=== PATIENT | female | born 1930 ===

== ENCOUNTER 2016-09-15 23:58 | Inpatient (IN) | payer MEDICAID ==
[2016-09-16] MEDS ORDERED: Sodium Chloride 0.9% 500 ML IV STA ×2 (01:04→03:55)
[2016-09-16 01:44] LABS: BASO % 0.4 % (0.0-2.0); EOS % 0.1 % (0.0-4.0); HEMATOCRIT 40.1 % (34.0-47.0); LYMPH # 0.8 K/uL (1.0-4.3); LYMPH % 7.3 % (20.0-40.0); MEAN CELL VOLUME 92.1 fl (81.0-99.0); MEAN CORPUSCULAR HEMOGLOBIN 31.5 pg (27.0-31.0); MEAN CORPUSCULAR HGB CONC 34.2 g/dL (33.0-37.0); MEAN PLATELET VOLUME 8.5 fl (7.2-11.7); MONO # 0.6 K/uL (0.0-0.8); MONO % 5.7 % (0.0-10.0); NEUT # 9.3 K/uL (1.8-7.0); NEUT % 86.5 % (50.0-75.0); PLATELET COUNT 180 K/uL (130-400); RED CELL DISTRIBUTION WIDTH 13.4 % (11.5-14.5); WHITE BLOOD COUNT 10.7 K/uL (4.8-10.8)
--- NOTE | 2016-09-16 01:58 | ED PDOC ---
HPI: General Adult Time Seen by Provider: 09/16/16 00:03 Chief Complaint (Nursing): Weakness/Neurological Deficit History Per: Family Onset/Duration Of Symptoms: Days Current Symptoms Are (Timing): Still Present Severity: Moderate Additional Complaint(s): 86 y/o female with history of HTN, CAD s/p CABG years ago, and DM brought in by family who complains that the patient has been generally weaker, more tired, had decreased appetite but will eat when prompted since yesterday. She also had a mild cough. At baseline she is normally able to walk, however she has been in bed for the last day. Family denies fever at home, vomiting, shortness of breath. Patient denies nausea or sore throat. PMD: Dr. Melgar. Past Medical History Vital Signs: Last Vital Signs Temp 102.3 F H 09/16/16 01:45 Pulse 90 09/16/16 03:55 Resp 16 09/16/16 00:01 BP 156/80 H 09/16/16 00:01 Pulse Ox 100 09/16/16 03:55 - Medical History PMH: Arthritis, Atrial Fibrillation, CAD, HTN, Hypercholesterolemia, Hyperlipidemia - Surgical History Surgical History: CABG, Pacemaker - Family History Family History: States: Unknown Family Hx - Living Arrangements Living Arrangements: With Family - Home Medications Home Medications: Ambulatory Orders Medication Instructions Recorded Atorvastatin [Lipitor] 10 mg PO HS 01/11/15 Losartan/Hydrochlorothiazide 1 tab PO DAILY 01/11/15 [Hyzaar 100-25 Tablet] Nitroglycerin 0.2 mg/hr [Nitro-Dur 1 patch TD HS 01/11/15 0.2 mg/hr Patch] Nitroglycerin [Nitrostat] 0.4 mg SL Q5MIN PRN 01/11/15 Cholecalciferol [Vitamin D 1000 IU] 1 tab PO DAILY 01/01/16 Famotidine [Pepcid] 20 mg PO DAILY 01/01/16 Glucosa Gonzalez 2Kcl/Chondroitin Gonzalez 1 cap PO HS 01/01/16 [Glucosamine & Chondroitin Cap] Metoprolol Tartrate [Lopressor] 75 mg PO Q12H 01/01/16 Warfarin [Coumadin] 1 mg PO DAILY #0 tab 01/03/16 - Allergies Allergies/Adverse Reactions: Allergies Allergy/AdvReac Type Severity Reaction Status Date / Time No Known Allergies Allergy Verified 09/16/16 00:01 Review of Systems ROS Statement: Except As Marked, All Systems Reviewed And Found Negative Constitutional: Positive for: Weakness. Negative for: Fever Respiratory: Positive for: Cough Neurological: Positive for: Weakness Physical Exam - Reviewed Nursing Documentation Reviewed: Yes Vital Signs Reviewed: Yes - Physical Exam Appears: Positive for: Non-toxic, No Acute Distress Head Exam: Positive for: ATRAUMATIC, NORMAL INSPECTION, NORMOCEPHALIC Skin: Positive for: Normal Color, Warm, DRY Eye Exam: Positive for: EOMI, Normal appearance, PERRL ENT: Positive for: Normal ENT Inspection Neck: Positive for: Normal, Painless ROM Cardiovascular/Chest: Positive for: Regular Rate, Rhythm. Negative for: Tachycardia Respiratory: Positive for: Normal Breath Sounds. Negative for: Wheezing, Respiratory Distress Gastrointestinal/Abdominal: Positive for: Normal Exam, Bowel Sounds, Soft. Negative for: Tenderness Back: Positive for: Normal Inspection Extremity: Positive for: Normal ROM, Other (erythema on right lower leg) Neurologic/Psych: Positive for: Alert, Oriented - Laboratory Results Result Diagrams: 09/16/16 01:41 09/16/16 01:41 - ECG ECG: Positive for: Interpreted By Me, Viewed By Me ECG Rhythm: Positive for: Atrial Fibrillation, Right Bundle Branch Block, Nonspecific Changes Rate: 90 O2 Sat by Pulse Oximetry: 100 (RA) Pulse Ox Interpretation: Normal - Radiology X-Ray: Interpreted by Me, Viewed By Me X-Ray Interpretation: No Acute Disease Medical Decision Making Medical Decision Making: Initial Impression: influenza v. PNA v. UTI with associated dehydration. Initial Plan: - EKG - CXR - Labs - UA - Flu Swab - IVF - Tylenol for fever 02:34: VBG showed pH 7.16, CO2 68, K greater than 20, Na 115, Chloride 87, glucose 165, lactate 2.6. Lab called with critical low Na. Scribe Attestation: Documented by Mikala Machado, acting as a scribe for Barry Sullivan MD. Scribe Attestation: All medical record entries made by the Scribe were at my direction and personally dictated by me. I have reviewed the chart and agree that the record accurately reflects my personal performance of the history, physical exam, medical decision making, and the department course for this patient. I have also personally directed, reviewed, and agree with the discharge instructions and disposition. Disposition - Clinical Impression Clinical Impression: Hyponatremia, Fever, Cellulitis - Patient ED Disposition Is Patient to be Admitted: Yes Discussed With Dr.: Arnel Melgar Doctor Will See Patient In The: Hospital Counseled Patient/Family Regarding: Studies Performed, Diagnosis - Disposition Disposition Time: 05:29 Condition: FAIR - Pt Status Changed To: Hospital Disposition Of: Inpatient - Admit Certification Admit to Inpatient:: After my assessment, the patient will require hospitalization for at least two midnights. This is because of the severity of symptoms shown, intensity of services needed, and/or the medical risk in this patient being treated as an outpatient. - POA Present On Arrival: Poor Glycemic Control
[2016-09-16 02:33] LABS: VENOUS BLOOD GAS BASE EXCESS -5.8 mmol/L (0.0-2.0); VENOUS BLOOD GAS MODE ROOM AIR; VENOUS BLOOD GAS PCO2 68 mmHg (40-60); VENOUS BLOOD PH 7.16 (7.32-7.43)
[2016-09-16 02:48] LABS: BILIRUBIN,TOTAL 1.1 mg/dl (0.2-1.3); TOTAL PROTEIN 8.2 G/DL (6.3-8.2)
[2016-09-16 02:49] LABS: CALCIUM 8.9 mg/dL (8.4-10.2)
[2016-09-16] MEDS ORDERED: Potassium Chloride 20 mEq/15 ml LIQ UD PO ONE ×2 (03:09→15:29)
[2016-09-16 03:51] LABS: NEUTROPHIL 82 % (42-75); REACTIVE LYMPHOCYTES 4 % (0-0); TOTAL CELLS COUNTED 100
[2016-09-16] MEDS ORDERED: Potassium Chloride 20 mEq ER Tab PO ONE (03:59)
[2016-09-16] MEDS ORDERED: Piperacillin/Tazobact 3.375 GM in Sodium Chloride 0.9% 100 ML IVPB STA (05:15)
[2016-09-16] MEDS ORDERED: Vancomycin 1 g Inj ONE (06:57)
[2016-09-16 07:20] LABS: VENOUS BLOOD GAS BASE EXCESS 1.8 mmol/L (0.0-2.0); VENOUS BLOOD GAS PCO2 50 mmHg (40-60); VENOUS BLOOD PH 7.36 (7.32-7.43)
[2016-09-16] MEDS ORDERED: Sodium Chloride 0.9% 1,000 ML IV STA (07:22)
--- NOTE | 2016-09-16 08:41 | CARD ---
APPROVED REPORT EKG Measurement Heart [id number] <Conclusion> Atrial fibrillation Right bundle branch block T wave abnormality, consider inferolateral ischemia Abnormal ECG
--- NOTE | 2016-09-16 09:22 | RAD ---
HISTORY: fever COMPARISON: Comparison is made to the previous study dated FINDINGS: LUNGS: [id number] pulmonary vascular congestion is noted. No definite evidence of focal infiltrate or consolidation in this study. PLEURA: No significant pleural effusion identified, no pneumothorax apparent. CARDIOVASCULAR: The cardiac silhouette is mildly enlarged. Left-sided AICD is seen in place. OSSEOUS STRUCTURES: Moderate to severe degenerative changes more prominent at the left shoulder. VISUALIZED UPPER ABDOMEN: Normal. OTHER FINDINGS: None. IMPRESSION: Suspicious for cardiomegaly and pulmonary vascular congestion. No definite evidence of pneumonia.
[2016-09-16 09:36] LABS: TROPONIN I 0.13 ng/mL (0.00-0.120)
[2016-09-16] MEDS ORDERED: Piperacillin/Tazobact 3.375 gm Inj IVPB ONE (09:41)
[2016-09-16 09:57] LABS: PARTIAL THROMBOPLASTIN TIME 40.6 SECONDS (23.3-32.5)
[2016-09-16 14:17] LABS: CALCIUM 8.2 mg/dL (8.4-10.2); POTASSIUM 2.8 MMOL/L (3.6-5.0)
[2016-09-16 14:30] LABS: TROPONIN I 0.185 ng/mL (0.00-0.120)
[2016-09-16] MEDS ORDERED: Pneumococcal 23-Valent Vaccine IM ONE (14:58)
--- NOTE | 2016-09-16 16:33 | CP.PCM.CON ---
History of Present Illness - History of Present Illness History of Present Illness: 86 y/o female with history of HTN, CAD s/p CABG years ago, and DM seen at bedside in telemetry for bilateral lower extremity celllulitis. Patient''s daughter states that her mother was brought in to the ED after feeling weak, fatigue, decreased appetite since yesterday. Patient's mother states she noticed the redness on her mother's legs as she was being taken in to the hospital. Patient states that she has mild pain in her legs. She denies n/f/v/c/ d/sob. pmhx: Arthritis, Atrial Fibrillation, CAD, HTN, Hypercholesterolemia, Hyperlipidemia pshx: CABG, pacemaker FH: unknown all: NKDA Past Patient History - Past Medical History & Family History Past Medical History?: Yes - Past Social History Smoking Status: Never Smoked - CARDIAC Hx Cardiac Disorders: Yes (Afib, HTN, high cholesterol) - ENDOCRINE/METABOLIC Other/Comment: BORDERLINE DIABETIC - MUSCULOSKELETAL/RHEUMATOLOGICAL Hx Arthritis: Yes - PSYCHIATRIC Hx Emotional Abuse: No Hx Physical Abuse: No Hx Substance Use: No - SURGICAL HISTORY Hx Coronary Artery Bypass Graft: Yes - ANESTHESIA Hx Anesthesia: Yes Hx Anesthesia Reactions: No Meds Allergies/Adverse Reactions: Allergies Allergy/AdvReac Type Severity Reaction Status Date / Time No Known Allergies Allergy Verified 09/16/16 00:01 - Medications Medications: Current Medications Aspirin (Aspirin Chewable) 81 mg PO DAILY [facility] Last Admin: 09/16/16 10:10 Dose: 81 mg Atorvastatin Calcium (Lipitor) 10 mg PO HS [facility] Cholecalciferol (Vitamin D) 1,000 iu PO DAILY [facility] Famotidine (Pepcid) 20 mg PO DAILY [facility] Furosemide (Lasix) 20 mg IVP DAILY [facility] Last Admin: 09/16/16 10:11 Dose: Not Given Piperacillin Sod/Tazobactam (Sod 3.375 gm/ Sodium Chloride) 100 mls @ 100 mls/ hr IVPB Q6 [facility] Vancomycin HCl 1 gm/ Sodium (Chloride) 250 mls @ 166.667 mls/hr IVPB Q12H [facility] Metoprolol Tartrate (Lopressor) 75 mg PO Q12H [facility] Nitroglycerin (Nitro-Dur 0.2 Mg/Hr Patch) 1 patch TD HS [facility] Potassium Chloride (K-Dur 20 Meq Er Tab) 20 meq PO BID [facility] Potassium Chloride (Potassium Chloride Oral Soln) 20 meq PO BID [facility] Warfarin Sodium (Coumadin) 1 mg PO QD5 [facility] PRN Reason: Protocol Stop: 09/16/16 17:01 Physical Exam - Constitutional Appears: Well, Non-toxic, No Acute Distress - Extremities Exam Additional comments: Vasc: left: DP palpable, PT nonpalpable. Right- nonpalpable pedal pulses, TG warm to warm, CFT < 3 sec to all digits, nonpitting edema, diffuse erythema neuro: grossly diminished derm: ascending cellulitis proximally to mid-thigh R side, left- cellulitis extending to tibial tuberosity, superficial healed ulceration noted to right heel, no open lesions, hyperkeratotic lesion noted to plantar medial 1st metatarsal head of left foot, diffuse erythema to foot and legs b/l, nails are thickened and dystrophic, hallucal nails are partially removed with darkish discoloration from fungal nail treatment, no purulence, no drainage, no malodor , no fluctuance, no underlying abscess formation ortho: diminished ankle, STJ, 1st ray ROM - Neurological Exam Neurological exam: Alert, Oriented x3 - Psychiatric Exam Psychiatric exam: Normal Affect, Normal Mood Results - Vital Signs Recent Vital Signs: Last Vital Signs Temp 98.6 F 09/16/16 12:20 Pulse 82 09/16/16 12:20 Resp 18 09/16/16 12:20 BP 151/69 H 09/16/16 12:20 Pulse Ox 97 09/16/16 12:20 - Labs Result Diagrams: 09/16/16 01:41 09/16/16 13:45 Labs: Laboratory Results - last 24 hr 09/16/16 09/16/16 08:32 13:45 PT 26.8 H INR 2.58 H APTT 40.6 H Sodium 134 Potassium 2.8 L Chloride 94 L Carbon Dioxide 26 Anion Gap 17 BUN 28 H Creatinine 1.1 Est GFR ( Amer) 57 Est GFR (Non-Af Amer) 47 Random Glucose 164 H Calcium 8.2 L Troponin I 0.1850 H* Assessment & Plan - Assessment and Plan (Free Text) Assessment: 86 y/o female seen at bedside with pmhx of Arthritis, Atrial Fibrillation, CAD, HTN, Hypercholesterolemia, Hyperlipidemia, for bilateral lower extremity cellulitis Plan: patient evaluated and chart reviewed discussed in detail with attending Dr Obrien labs and vitals reviewed; Tmax- 102.3, WBC 10.7 marked erythema with marking pen, will continue monitoring Rx multipodus boots for offloading heels while bedbound Rx arterial dopplers b/l to assess vascular flow continue IV abx -Vanco and Zosyn as per ID podiatry will continue to monitor while patient remains in house
[2016-09-16] MEDS: Piperacillin/Tazobact 3.375 GM in Sodium Chloride 0.9% 100 ML IVPB SCH ×2 (16:57→21:15)
[2016-09-16] MEDS: Potassium Chloride 20 mEq/15 ml LIQ UD PO SCH (17:00)
[2016-09-16] MEDS: Potassium Chloride 20 mEq ER Tab PO SCH (19:19)
[2016-09-16 21:45] LABS: TROPONIN I 0.134 ng/mL (0.00-0.120)
[2016-09-16] MEDS: Nitroglycerin 0.2 mg/hr Top Patch TD SCH (21:51)
[2016-09-17] MEDS: Piperacillin/Tazobact 3.375 GM in Sodium Chloride 0.9% 100 ML IVPB SCH ×4 (04:12→22:36)
--- NOTE | 2016-09-17 06:32 | CP.PCM.HP ---
History of Present Illness - History of Present Illness History of Present Illness: This is an 86 y/o female admitted for increasing fatiguability, shortness of breath and decreased appetite for the past few days. She has a hx of CAD HTN atrial fibrillation and DM 2 and has been stable till the last few days where she was noted to have decreased appetite and noted SOB. There was no cough or fever. At the Er she was noted to have elevated lactic and troponin. and proBNP. Present on Admission - Present on Admission Any Indicators Present on Admission: No History of DVT/PE: No History of Uncontrolled Diabetes: Yes Urinary Catheter: No Decubitus Ulcer Present: No Review of Systems - Constitutional Constitutional: Anorexia, Fatigue, Lethargy Past Patient History - Past Medical History & Family History Past Medical History?: Yes - Past Social History Smoking Status: Never Smoked - CARDIAC Hx Cardiac Disorders: Yes (Afib, HTN, high cholesterol) - PULMONARY Hx Respiratory Disorders: No - NEUROLOGICAL Hx Neurological Disorder: No - HEENT Hx HEENT Problems: No - RENAL Hx Chronic Kidney Disease: No - ENDOCRINE/METABOLIC Other/Comment: BORDERLINE DIABETIC - HEMATOLOGICAL/ONCOLOGICAL Hx Blood Disorders: No - INTEGUMENTARY Hx Dermatological Problems: No - MUSCULOSKELETAL/RHEUMATOLOGICAL Hx Arthritis: Yes - GASTROINTESTINAL Hx Gastrointestinal Disorders: Yes Hx Colostomy: Yes - GENITOURINARY/GYNECOLOGICAL Hx Genitourinary Disorders: Yes - PSYCHIATRIC Hx Emotional Abuse: No Hx Physical Abuse: No Hx Substance Use: No - SURGICAL HISTORY Hx Coronary Artery Bypass Graft: Yes - ANESTHESIA Hx Anesthesia: Yes Hx Anesthesia Reactions: No Meds Allergies/Adverse Reactions: Allergies Allergy/AdvReac Type Severity Reaction Status Date / Time No Known Allergies Allergy Verified 09/16/16 00:01 Physical Exam - Head Exam Head Exam: NORMAL INSPECTION - ENT Exam Additional comments: dry mucosae - Respiratory Exam Respiratory Exam: Decreased Breath Sounds - Cardiovascular Exam Cardiovascular Exam: Irregular Rhythm - GI/Abdominal Exam GI & Abdominal Exam: Normal Bowel Sounds - Extremities Exam Additional comments: warm erythematous area on the right leg - Neurological Exam Neurological exam: Alert - Psychiatric Exam Psychiatric exam: Normal Affect Results - Vital Signs Recent Vital Signs: Last Vital Signs Temp 98.1 F 09/17/16 05:00 Pulse 72 09/17/16 05:00 Resp 20 09/17/16 05:00 BP 110/51 L 09/17/16 05:00 Pulse Ox 99 09/17/16 05:00 - Labs Result Diagrams: 09/16/16 01:41 09/16/16 13:45 Labs: Laboratory Results - last 24 hr 09/16/16 09/16/16 09/16/16 08:32 13:45 16:49 PT 26.8 H INR 2.58 H APTT 40.6 H Sodium 134 Potassium 2.8 L Chloride 94 L Carbon Dioxide 26 Anion Gap 17 BUN 28 H Creatinine 1.1 Est GFR ( Amer) 57 Est GFR (Non-Af Amer) 47 POC Glucose (mg/dL) 125 H Random Glucose 164 H Lactic Acid Calcium 8.2 L Troponin I 0.1850 H* NT-Pro-B Natriuret Pep 09/16/16 09/16/16 09/16/16 17:00 20:15 21:41 PT INR APTT Sodium Potassium Chloride Carbon Dioxide Anion Gap BUN Creatinine Est GFR ( Amer) Est GFR (Non-Af Amer) POC Glucose (mg/dL) 164 H Random Glucose Lactic Acid 3.1 H Calcium Troponin I 0.1340 H* NT-Pro-B Natriuret Pep 9150 H 09/17/16 05:29 PT INR APTT Sodium Potassium Chloride Carbon Dioxide Anion Gap BUN Creatinine Est GFR ( Amer) Est GFR (Non-Af Amer) POC Glucose (mg/dL) 125 H Random Glucose Lactic Acid Calcium Troponin I NT-Pro-B Natriuret Pep Assessment & Plan (1) Cellulitis Status: Acute (2) Fever Status: Acute (3) Anemia Status: Acute (4) Atrial fibrillation Status: Acute (5) Coronary artery disease Status: Acute (6) Congestive heart failure Status: Acute (7) Cellulitis, leg Status: Acute (8) Cardiac enzymes elevated Status: Acute - Assessment and Plan (Free Text) Plan: start iv antibiotics Cardiology eval ECHO lasic cautious hydration check labs in am.
[2016-09-17 07:21] LABS: CALCIUM 7.9 mg/dL (8.4-10.2); POTASSIUM 2.7 MMOL/L (3.6-5.0)
--- NOTE | 2016-09-17 08:22 | CARD ---
APPROVED REPORT EXAM: Two-dimensional and M-mode echocardiogram with Doppler and color Doppler. Other Information Quality : GoodRhythm : NSR INDICATION Pumonary Congestion Surgery/Intervention CABD DIMENSIONS IVSd0.96 (0.7-1.1cm)LVDd4.60 (3.9-5.9cm) LVOT Diameter2.08 (1.8-2.4cm)PWd0.86 (0.7-1.1cm) IVSs1.30 (0.8-1.2cm)LVDs2.96 (2.5-4.0cm) FS (%) 35.6 %PWs1.26 (0.8-1.2cm) M-Mode DIMENSIONS Left Atrium (MM)4.26 (2.5-4.0cm)IVSd1.12 (0.7-1.1cm) Aortic Root2.53 (2.2-3.7cm)LVDd4.56 (4.0-5.6cm) Aortic Cusp Exc.1.47 (1.5-2.0cm)PWd0.88 (0.7-1.1cm) IVSs1.38 cmFS (%) 32 % LVDs3.09 (2.0-3.8cm)PWs1.65 cm Mitral Valve E/A ratio0.0 TDI E/Lateral E'0.0E/Medial E'0.0 Pulmonary Valve PV Peak Bektqinr02.8cm/s Tricuspid Valve TR Peak [id number]/sRAP [id number] Peak Gr.27mmHg [id number] LEFT VENTRICLE The left ventricle is normal size. There is normal left ventricular wall thickness. Left ventricle systolic function is - moderately impaired. The study is only of fair quality and the endocardium could not be seen on most views. There is - moderate LV hypokinesia. The patient is in atrial fibrillation. No left ventricle thrombus noted on this study. There is no ventricular septal defect visualized. There is no left ventricular aneurysm. There is no mass noted in the left ventricle. RIGHT VENTRICLE The right ventricle is normal size. There is normal right ventricular wall thickness. The right ventricular systolic function is normal. ATRIA The left atrium is - moderately dilated on the 2D study There is no thrombus suspected in the left atrium.. The right atrium is - mildly dilated. The interatrial septum is intact with no evidence for an atrial septal defect. AORTIC VALVE The aortic valve is mildly thickened. There is moderate aortic regurgitation. There is no aortic valvular stenosis. MITRAL VALVE Mitral annular calcification is mild. The mitral valve leaflets are thickened. There is no evidence of mitral valve prolapse. There is no mitral valve stenosis. Mitral regurgitation is - moderate. TRICUSPID VALVE The tricuspid valve is normal in structure and function. There is moderate tricuspid regurgitation. Right ventricular systolic pressure is estimated at 38 mmHg. There is no tricuspid valve prolapse or vegetation. There is no tricuspid valve stenosis. PULMONIC VALVE The pulmonary valve is normal in structure and function. There is trace pulmonic valvular regurgitation. GREAT VESSELS The aortic root is normal in size. The IVC is normal in size and collapses >50% with inspiration. PERICARDIAL EFFUSION small anterior echo free space There is no pleural effusion. <Conclusion> The study is only of fair quality. The left ventricle is normal size. There is normal left ventricular wall thickness. Left ventricle systolic function is - moderately impaired. The left atrium and right atrium are dilated. The mitral and aortic valves are thickened but not stenotic. There is moderate rgurgitation of the mitral, aortic and tricuspid valves.
--- NOTE | 2016-09-17 08:23 | CP.PCM.PN ---
Subjective - Date & Time of Evaluation Date of Evaluation: 09/17/16 Time of Evaluation: 07:20 - Subjective Subjective: 86F seen and examined at bedside, family member at bedside. Pt without acute complaints, denies SOB, chest pain, palpitations. She does report LT great toe with some tenderness. Objective - Vital Signs/Intake and Output Vital Signs (last 24 hours): Temp Pulse Resp BP Pulse Ox 36.5 C 71 20 108/58 L 100 09/17/16 08:00 09/17/16 08:00 09/17/16 08:00 09/17/16 08:00 09/17/16 08:00 - Medications Medications: Current Medications Aspirin (Aspirin Chewable) 81 mg PO DAILY [facility] Last Admin: 09/16/16 10:10 Dose: 81 mg Atorvastatin Calcium (Lipitor) 10 mg PO HS [facility] Last Admin: 09/16/16 21:51 Dose: 10 mg Cholecalciferol (Vitamin D) 1,000 iu PO DAILY [facility] Famotidine (Pepcid) 20 mg PO DAILY [facility] Furosemide (Lasix) 20 mg IVP DAILY [facility] Last Admin: 09/16/16 10:11 Dose: Not Given Piperacillin Sod/Tazobactam (Sod 3.375 gm/ Sodium Chloride) 100 mls @ 100 mls/ hr IVPB Q6 [facility] Last Admin: 09/17/16 04:12 Dose: 100 mls/hr Vancomycin HCl 1 gm/ Sodium (Chloride) 250 mls @ 166.667 mls/hr IVPB Q12H [facility] Last Admin: 09/17/16 02:22 Dose: 166.667 mls/hr Potassium Chloride (Potassium Cl 10meq/50ml Sterile Water) 50 mls @ 50 mls/hr IVPB Q1 [facility] Stop: 09/17/16 11:59 Metoprolol Tartrate (Lopressor) 75 mg PO Q12H [facility] Last Admin: 09/17/16 03:40 Dose: Not Given Nitroglycerin (Nitro-Dur 0.2 Mg/Hr Patch) 1 patch TD HS [facility] Last Admin: 09/16/16 21:51 Dose: 1 patch Potassium Chloride (K-Dur 20 Meq Er Tab) 20 meq PO BID [facility] Last Admin: 09/16/16 19:19 Dose: Not Given Potassium Chloride (Potassium Chloride Oral Soln) 20 meq PO BID [facility] Last Admin: 09/16/16 17:00 Dose: Not Given - Labs Labs: 09/17/16 05:25 PT 27.5 SECONDS (9.6-11.2) H 09/17/16 05:25 INR 2.64 (0.92-1.08) H 09/17/16 05:25 APTT 40.6 SECONDS (23.3-32.5) H 09/16/16 08:32 - Constitutional Appears: Well, Non-toxic, No Acute Distress - Head Exam Head Exam: ATRAUMATIC, NORMAL INSPECTION - Eye Exam Eye Exam: EOMI, Normal appearance - ENT Exam ENT Exam: Mucous Membranes Moist, Normal Exam - Neck Exam Neck Exam: Full ROM, Normal Inspection - Respiratory Exam Respiratory Exam: Decreased Breath Sounds (bibasilar), Clear to Ausculation Bilateral, NORMAL BREATHING PATTERN. absent: Wheezes - Cardiovascular Exam Cardiovascular Exam: Irregular Rhythm (PPM). absent: JVD - GI/Abdominal Exam GI & Abdominal Exam: Soft, Normal Bowel Sounds. absent: Tenderness - Extremities Exam Extremities Exam: Normal Capillary Refill. absent: Normal Inspection Additional comments: Bilateral lower extremity erythema and resolving edema R>>L, warm, non-pitting, palpable DPs bilaterally with sensation intact. - Neurological Exam Neurological Exam: Alert, Awake - Psychiatric Exam Psychiatric exam: Normal Affect, Normal Mood - Skin Skin Exam: Intact, Normal Color (EXCEPT as documented in extremity exam) Assessment and Plan (1) Cellulitis, leg Assessment & Plan: Bilateral R>>L appears to be 2/2 venous stasis with skin changes and palpable pulses, however given co-morbidities and cardiac history arterial disease likely. - Podiatry Consult: Arterial duplex, soft boots - Physical Therapy - c/w Vanc/Zosyn - Vanc trough - Physical Therapy - OOB to chair Status: Acute (2) Hypokalemia Assessment & Plan: Likely 2/2 Lasix, no acute EKG changes. Magnesium WNL - Repleting IV and PO - Repeat BMP @ 1600 - Will monitor Status: Acute (3) DVT prophylaxis Assessment & Plan: Pt currently anti-coagulated for a-fib and in therapeutic range. - c/w Coumadin 1mg, Daily Status: Acute (4) Atrial fibrillation Assessment & Plan: Chronic, rate-controlled, INR therapeutic, echo this admission c/w moderate impaired systolic dysfunction. - c/w home regimen - Coumadin 1mg, PO, Daily Status: Chronic (5) Hypertension Assessment & Plan: Well-controlled - c/w home regimen Status: Chronic
--- NOTE | 2016-09-17 08:56 | CP.PCM.CON ---
History of Present Illness - History of Present Illness History of Present Illness: Full Note Dictated. Cellulitis with elevated Lactate level Elevated Troponins (due to CKD + LV dysfunction) Stable CAD with S/P CABG No evidence of AMI/ACS Chr A Fib with S/P PPM Implant DM(II)/HTN On IVABx Stable from Cardiac point of view On [place] for A Fib Past Patient History - Past Medical History & Family History Past Medical History?: Yes - Past Social History Smoking Status: Never Smoked - CARDIAC Hx Cardiac Disorders: Yes (Afib, HTN, high cholesterol) - PULMONARY Hx Respiratory Disorders: No - NEUROLOGICAL Hx Neurological Disorder: No - HEENT Hx HEENT Problems: No - RENAL Hx Chronic Kidney Disease: No - ENDOCRINE/METABOLIC Other/Comment: BORDERLINE DIABETIC - HEMATOLOGICAL/ONCOLOGICAL Hx Blood Disorders: No - INTEGUMENTARY Hx Dermatological Problems: No - MUSCULOSKELETAL/RHEUMATOLOGICAL Hx Arthritis: Yes - GASTROINTESTINAL Hx Gastrointestinal Disorders: Yes Hx Colostomy: Yes - GENITOURINARY/GYNECOLOGICAL Hx Genitourinary Disorders: Yes - PSYCHIATRIC Hx Emotional Abuse: No Hx Physical Abuse: No Hx Substance Use: No - SURGICAL HISTORY Hx Coronary Artery Bypass Graft: Yes - ANESTHESIA Hx Anesthesia: Yes Hx Anesthesia Reactions: No Meds Allergies/Adverse Reactions: Allergies Allergy/AdvReac Type Severity Reaction Status Date / Time No Known Allergies Allergy Verified 09/16/16 00:01 - Medications Medications: Current Medications Aspirin (Aspirin Chewable) 81 mg PO DAILY [facility] Last Admin: 09/16/16 10:10 Dose: 81 mg Atorvastatin Calcium (Lipitor) 10 mg PO HS [facility] Last Admin: 09/16/16 21:51 Dose: 10 mg Cholecalciferol (Vitamin D) 1,000 iu PO DAILY [facility] Famotidine (Pepcid) 20 mg PO DAILY [facility] Furosemide (Lasix) 20 mg IVP DAILY [facility] Last Admin: 09/16/16 10:11 Dose: Not Given Piperacillin Sod/Tazobactam (Sod 3.375 gm/ Sodium Chloride) 100 mls @ 100 mls/ hr IVPB Q6 [facility] Last Admin: 09/17/16 04:12 Dose: 100 mls/hr Vancomycin HCl 1 gm/ Sodium (Chloride) 250 mls @ 166.667 mls/hr IVPB Q12H [facility] Last Admin: 09/17/16 02:22 Dose: 166.667 mls/hr Potassium Chloride (Potassium Cl 10meq/50ml Sterile Water) 50 mls @ 50 mls/hr IVPB Q1 [facility] Stop: 09/17/16 11:59 Metoprolol Tartrate (Lopressor) 75 mg PO Q12H [facility] Last Admin: 09/17/16 03:40 Dose: Not Given Nitroglycerin (Nitro-Dur 0.2 Mg/Hr Patch) 1 patch TD HS [facility] Last Admin: 09/16/16 21:51 Dose: 1 patch Potassium Chloride (K-Dur 20 Meq Er Tab) 20 meq PO BID [facility] Last Admin: 09/16/16 19:19 Dose: Not Given Potassium Chloride (Potassium Chloride Oral Soln) 20 meq PO BID [facility] Last Admin: 09/16/16 17:00 Dose: Not Given Results - Vital Signs Recent Vital Signs: Last Vital Signs Temp 97.7 F 09/17/16 08:00 Pulse 71 09/17/16 08:00 Resp 20 09/17/16 08:00 BP 108/58 L 09/17/16 08:00 Pulse Ox 100 09/17/16 08:00 - Labs Result Diagrams: 09/16/16 01:41 09/17/16 05:25 Labs: Laboratory Results - last 24 hr 09/16/16 09/16/16 09/16/16 08:32 13:45 16:49 PT 26.8 H INR 2.58 H APTT 40.6 H Sodium 134 Potassium 2.8 L Chloride 94 L Carbon Dioxide 26 Anion Gap 17 BUN 28 H Creatinine 1.1 Est GFR ( Amer) 57 Est GFR (Non-Af Amer) 47 POC Glucose (mg/dL) 125 H Random Glucose 164 H Lactic Acid Calcium 8.2 L Troponin I 0.1850 H* NT-Pro-B Natriuret Pep 09/16/16 09/16/16 09/16/16 17:00 20:15 21:41 PT INR APTT Sodium Potassium Chloride Carbon Dioxide Anion Gap BUN Creatinine Est GFR ( Amer) Est GFR (Non-Af Amer) POC Glucose (mg/dL) 164 H Random Glucose Lactic Acid 3.1 H Calcium Troponin I 0.1340 H* NT-Pro-B Natriuret Pep 9150 H 09/17/16 09/17/16 05:25 05:29 PT 27.5 H INR 2.64 H APTT Sodium 134 Potassium 2.7 L Chloride 96 L Carbon Dioxide 25 Anion Gap 16 BUN 29 H Creatinine 1.1 Est GFR ( Amer) 57 Est GFR (Non-Af Amer) 47 POC Glucose (mg/dL) 125 H Random Glucose 114 H Lactic Acid Calcium 7.9 L Troponin I NT-Pro-B Natriuret Pep
[2016-09-17 09:24] LABS: MAGNESIUM 1.9 MG/DL (1.6-2.3); PHOSPHOROUS 2.3 mg/dl (2.5-4.5)
--- NOTE | 2016-09-17 09:26 | CP.PCM.PN ---
Subjective - Date & Time of Evaluation Date of Evaluation: 09/17/16 Time of Evaluation: 09:19 - Subjective Subjective: 86 year old female with PMHx of HTN, CAD s/p CABG years ago, and DM seen at bedside in telemetry for bilateral lower extremity celllulitis. Patient denies any pain to her lower extremities. She states she feels better than yesterday and the redness has decreased. She denies n/f/v/c/d/sob. Objective - Vital Signs/Intake and Output Vital Signs (last 24 hours): Temp Pulse Resp BP Pulse Ox 97.7 F 71 20 108/58 L 100 09/17/16 08:00 09/17/16 08:00 09/17/16 08:00 09/17/16 08:00 09/17/16 08:00 - Medications Medications: Current Medications Aspirin (Aspirin Chewable) 81 mg PO DAILY [facility] Last Admin: 09/16/16 10:10 Dose: 81 mg Atorvastatin Calcium (Lipitor) 10 mg PO [facility] Last Admin: 09/16/16 21:51 Dose: 10 mg Cholecalciferol (Vitamin D) 1,000 iu PO DAILY [facility] Last Admin: 09/17/16 08:52 Dose: 1,000 iu Famotidine (Pepcid) 20 mg PO DAILY [facility] Last Admin: 09/17/16 08:49 Dose: 20 mg Furosemide (Lasix) 20 mg IVP DAILY [facility] Last Admin: 09/16/16 10:11 Dose: Not Given Piperacillin Sod/Tazobactam (Sod 3.375 gm/ Sodium Chloride) 100 mls @ 100 mls/ hr IVPB Q6 [facility] Last Admin: 09/17/16 09:05 Dose: 100 mls/hr Vancomycin HCl 1 gm/ Sodium (Chloride) 250 mls @ 166.667 mls/hr IVPB Q12H [facility] Last Admin: 09/17/16 02:22 Dose: 166.667 mls/hr Potassium Chloride (Potassium Cl 10meq/50ml Sterile Water) 50 mls @ 50 mls/hr IVPB Q1 [facility] Stop: 09/17/16 11:59 Metoprolol Tartrate (Lopressor) 75 mg PO Q12H [facility] Last Admin: 09/17/16 03:40 Dose: Not Given Nitroglycerin (Nitro-Dur 0.2 Mg/Hr Patch) 1 patch TD HS [facility] Last Admin: 09/16/16 21:51 Dose: 1 patch Potassium Chloride (K-Dur 20 Meq Er Tab) 20 meq PO BID [facility] Last Admin: 09/16/16 19:19 Dose: Not Given Potassium Chloride (Potassium Chloride Oral Soln) 20 meq PO BID [facility] Last Admin: 09/16/16 17:00 Dose: Not Given - Labs Labs: 09/17/16 05:25 PT 27.5 SECONDS (9.6-11.2) H 09/17/16 05:25 INR 2.64 (0.92-1.08) H 09/17/16 05:25 APTT 40.6 SECONDS (23.3-32.5) H 09/16/16 08:32 - Constitutional Appears: Well, Non-toxic, No Acute Distress - Extremities Exam Additional comments: Vasc: left: DP palpable, PT nonpalpable. Right- nonpalpable pedal pulses, TG warm to warm, CFT < 3 sec to all digits. No edema noted. diffuse erythema noted to lower extremies b/l Neuro: grossly diminished Derm: Erythema is resolving, on the right it from the tibial tuberosity to the digits on the left from the midcalf to the digits. superficial healed ulceration noted to right heel, no open lesions, hyperkeratotic lesion noted to plantar medial 1st metatarsal head of left foot, diffuse erythema to foot and legs b/l, nails are thickened and dystrophic, hallucal nails are partially removed with darkish discoloration from fungal nail treatment, no purulence, no drainage, no malodor, no fluctuance, no underlying abscess formation Ortho: diminished ankle, STJ, 1st ray ROM. No pain on palpation to lower extremities b/l. - Neurological Exam Neurological Exam: Alert, Awake, Oriented x3 - Psychiatric Exam Psychiatric exam: Normal Affect, Normal Mood Assessment and Plan - Assessment and Plan (Free Text) Assessment: 86 y/o female seen at bedside with pmhx of Arthritis, Atrial Fibrillation, CAD, HTN, Hypercholesterolemia, Hyperlipidemia, for bilateral lower extremity cellulitis Plan: Patient examined and evaluated Chart and vitals reviewed Discussed in detail with attending Dr Obrien labs and vitals reviewed; currently afebrile, WBC 10.7(09/16/16) Rx multipodus boots for offloading heels while bedbound Rx arterial dopplers b/l to assess vascular flow Continue IV abx -Vanco and Zosyn as per ID podiatry will continue to monitor while patient remains in house
[2016-09-17] MEDS: Potassium CL 10 MEQ/50 ML 50 ML IVPB SCH ×4 (09:49→15:34)
[2016-09-17] MEDS: Potassium Chloride 20 mEq ER Tab PO SCH ×2 (10:39→16:43)
[2016-09-17] MEDS: Potassium Chloride 20 mEq/15 ml LIQ UD PO SCH (10:39)
[2016-09-17] MEDS ORDERED: Simethicone 80 mg Chewtab PO PRN (11:09)
--- NOTE | 2016-09-17 11:21 | PQF GENQUE ---
Dr. Ambrose, Please specify the type of Acute heart failure in your progress notes: Combined systolic and diastolic Diastolic Systolic Other (please specify) Unable to determine Unknown --cxr; Imp:Suspicious for cardiomegaly and pulmonary vascular congestion. No definite evidence of pneumonia. --09/17 echo: The study is only of fair quality. The left ventricle is normal size. There is normal left ventricular wall thickness. Left ventricle systolic function is - moderately impaired. The left atrium and right atrium are dilated. The mitral and aortic valves are thickened but not stenotic. There is moderate rgurgitation of the mitral, aortic and tricuspid valves. --PRoBNP: 9150 --IV Lasix, cautious hydration This form is a permanent part of the medical record Clarification of your documentation is requested to better reflect the severity of illness and intensity of treatment of your patient. Indicators present [] Specify: [] [] Specify: [] [] Specify: [] [] Specify: [] Location in the medical record that reflects the above clinical findings: [] Treatment Provided: [] PHYSICIAN'S RESPONSE Based on your medical judgment of the clinical indicators outlined above please clarify the following: [] Practitioner response [] If unable to determine, please check the box, sign and date. Present On Admission (POA) Indicator: [] Present at the time of admission [] Not present at the time of admission [] Clinically Undetermined In responding to this query, please exercise your independent professional judgment. The fact that a question is asked does not imply that any particular answer is desired or expected. Thank you for your clarification on this documentation. If you have any questions please call. * Thank you, Cally Montalvo RN BSN ext. #[phone] MTDD
--- NOTE | 2016-09-17 11:23 | PQF GENQUE ---
Dr. Melgar, In agreement with: Pressure ulcer: POA:b/l heels:non blanchable redness:listed in the nurses Admission Assessment Information OR: Disagree OR: Other explanation of clinical findings Wound RN consult: pending This form is a permanent part of the medical record Clarification of your documentation is requested to better reflect the severity of illness and intensity of treatment of your patient. Indicators present [] Specify: [] [] Specify: [] [] Specify: [] [] Specify: [] Location in the medical record that reflects the above clinical findings: [] Treatment Provided: [] PHYSICIAN'S RESPONSE Based on your medical judgment of the clinical indicators outlined above please clarify the following: [] Practitioner response [] If unable to determine, please check the box, sign and date. Present On Admission (POA) Indicator: [] Present at the time of admission [] Not present at the time of admission [] Clinically Undetermined In responding to this query, please exercise your independent professional judgment. The fact that a question is asked does not imply that any particular answer is desired or expected. Thank you for your clarification on this documentation. If you have any questions please call. * Thank you, Cally Montalvo RN BSN ext. #[phone] MTDD
--- NOTE | 2016-09-17 11:48 | CON ---
DATE: 09/17/2016 She is hospitalized under Dr. Melgar's care in room 415 of telemetry unit. This 86-year-old female was brought to the Emergency Room after developing chills and disorientation, and was found to have a fever of 102 in the Emergency Room. The patient has a long history of diet- controlled hyperglycemia, has diffuse vascular disease consisting of coronary artery disease which re quired coronary bypass graft surgery more than 4 years back, has chronic atrial fibrillation for whic h she takes oral anticoagulation and has had pacemaker implant more than 6 years back. She has never been a smoker, and has had borderline left ventricular systolic dysfunction for a number of years. The patient, for the last few, months has been mostly housebound, and even at home she is mostly bed and chair bound; gets around with a walker only. Has recently developed severe loss of appetite and disorientation and was brought to the Emergency Room with chills and a fever of 102. In the Emergency Room her total WBC count was 10,700, of which 86% were neutrophils. Her blood gases showed a pO2 of 20 mmHg with a venous pH of 7.36. Lactate was 3.3 mEq/L, and subsequently, further analysis showed that her BUN and creatinine were 28 and 1.1 mg %. Her GFR was 47 mL per minute. She had significant hyponatremia of 2.8 mEq/L. Potassium is being replenished. Her electrocardiogram showed atrial fibrillation with a pattern of right bundle branch block. PHYSICAL EXAMINATION: Shows an elderly lady who has been hydrated and is afebrile at this point. She is alert and awake, a nd is aware of her surroundings. Afebrile, with a pulse rate of 70 beats per minute regular, with a blood pressure of 124/70 mmHg. Her jugular venous pressure was not elevated. There was no edema over lower extremity. There was an area of erythema with significant warmth over the inner aspect of the right leg just above the right knee. The Homans sign was negative. Her peda l pulses were not palpable. There was a scar of sternotomy in the apex was in the sixth space, slightly heaving in character. The first heart sound was muffled. The second heart sound was normal. There was an apical systolic murmur of mitral regurgitation. Again, her EKG showed atrial fibrillation with a heart rate of 90 beats per minute and a pattern of r ight bundle branch block. Echocardiogram done yesterday showed a depressed left ventricular systolic function with mitral and aortic regurgitation. IMPRESSION AT THIS TIME: Elevated troponin levels probably is most likely secondary to chronic kidne y disease, as well as left ventricular systolic decompensation, along with diffuse coronary artery di sease. Under these circumstances, the patient should often demonstrate persistently elevated troponi n levels. Elevated proBNP is secondary to left ventricular systolic dysfunction. At this juncture, the patient is hemodynamically stable, and her INR is in the therapeutic range. No further cardiac intervention need be undertaken at this point. She will continue to have her INR mo nitored, and warfarin given accordingly. The rest of her medications are appropriate at this junctur e. Larry Haque MD cc: 23 TT: 09/17/2016 11:48:25 Confirmation # [id number] Dictation # [id number]
[2016-09-17] MEDS: Potassium & Sodium Phosphate PO SCH (16:35)
[2016-09-17 18:26] LABS: CALCIUM 8.2 mg/dL (8.4-10.2); POTASSIUM 3.9 MMOL/L (3.6-5.0)
[2016-09-17] MEDS: Nitroglycerin 0.2 mg/hr Top Patch TD SCH (21:21)
[2016-09-18] MEDS: Piperacillin/Tazobact 3.375 GM in Sodium Chloride 0.9% 100 ML IVPB SCH ×2 (04:30→09:53)
[2016-09-18 06:45] LABS: HEMATOCRIT 33.3 % (34.0-47.0); MEAN CELL VOLUME 94.3 fl (81.0-99.0); MEAN CORPUSCULAR HGB CONC 32.8 g/dL (33.0-37.0); RED CELL DISTRIBUTION WIDTH 13.5 % (11.5-14.5)
--- NOTE | 2016-09-18 07:05 | CP.PCM.PN ---
Subjective - Date & Time of Evaluation Date of Evaluation: 09/18/16 Time of Evaluation: 06:55 - Subjective Subjective: 86F seen and examined at bedside with attending. She reports feeling much better, denies SOB/chest pain/palpitations and had BM this morning. She denies BLLE pain, but mild LEFT knee pain. She is eating well. Objective - Vital Signs/Intake and Output Vital Signs (last 24 hours): Temp Pulse Resp BP Pulse Ox 36.8 C 70 18 139/76 100 09/18/16 01:00 09/18/16 01:00 09/18/16 01:00 09/18/16 01:00 09/18/16 00:35 - Medications Medications: Current Medications Aspirin (Aspirin Chewable) 81 mg PO DAILY [facility] Last Admin: 09/16/16 10:10 Dose: 81 mg Atorvastatin Calcium (Lipitor) 10 mg PO HS [facility] Last Admin: 09/17/16 21:19 Dose: 10 mg Cholecalciferol (Vitamin D) 1,000 iu PO DAILY [facility] Last Admin: 09/17/16 08:52 Dose: 1,000 iu Famotidine (Pepcid) 20 mg PO DAILY [facility] Last Admin: 09/17/16 08:49 Dose: 20 mg Furosemide (Lasix) 20 mg PO DAILY [facility] Piperacillin Sod/Tazobactam (Sod 3.375 gm/ Sodium Chloride) 100 mls @ 100 mls/ hr IVPB Q6 [facility] Last Admin: 09/17/16 22:36 Dose: 100 mls/hr Vancomycin HCl 750 mg/ Sodium (Chloride) 250 mls @ 166.667 mls/hr IVPB Q12 [facility] Last Admin: 09/17/16 20:48 Dose: 166.667 mls/hr Metoprolol Tartrate (Lopressor) 75 mg PO 0800,1700 [facility] Last Admin: 09/17/16 16:33 Dose: 75 mg Nitroglycerin (Nitro-Dur 0.2 Mg/Hr Patch) 1 patch TD [facility] Last Admin: 09/17/16 21:21 Dose: 1 patch Potassium Chloride (K-Dur 20 Meq Er Tab) 20 meq PO BID [facility] Last Admin: 09/17/16 16:43 Dose: 20 meq Potassium Phos/Sodium Phos (Neutra-Phos) 1 pkt PO BID [facility] Last Admin: 04/04/17 16:35 Dose: 1 pkt Simethicone (Mylicon Chew Tab) 80 mg PO TID PRN PRN Reason: Flatulence Last Admin: 09/17/16 12:01 Dose: 80 mg - Labs Labs: 09/18/16 05:45 09/17/16 17:45 PT 27.5 SECONDS (9.6-11.2) H 09/17/16 05:25 INR 2.64 (0.92-1.08) H 09/17/16 05:25 APTT 40.6 SECONDS (23.3-32.5) H 09/16/16 08:32 - Constitutional Appears: Well, Non-toxic, No Acute Distress - Head Exam Head Exam: ATRAUMATIC, NORMAL INSPECTION - Eye Exam Eye Exam: EOMI, Normal appearance - ENT Exam ENT Exam: Mucous Membranes Moist, Normal Exam - Respiratory Exam Respiratory Exam: Clear to Ausculation Bilateral, NORMAL BREATHING PATTERN. absent: Rales - Cardiovascular Exam Cardiovascular Exam: Irregular Rhythm. absent: JVD - GI/Abdominal Exam GI & Abdominal Exam: Soft, Normal Bowel Sounds. absent: Tenderness - Extremities Exam Extremities Exam: Full ROM, Normal Capillary Refill. absent: Normal Inspection (trace residual erythemia, palpable pulses), Pedal Edema - Neurological Exam Neurological Exam: Alert, Awake, Oriented x3 - Psychiatric Exam Psychiatric exam: Normal Affect, Normal Mood - Skin Skin Exam: Normal Color (except as above), Warm Assessment and Plan (1) Cellulitis, leg Assessment & Plan: Almost entirely resolved, b/l venous duplex negative for DVT, will change from IV to PO antibiotics. - Podiatry Consult recs noted: c/w pressure soft boots while in bed - Physical Therapy - Cephalexin 500mg, PO, QID, [id number] - Lactobacillus - Physical Therapy - OOB to chair w/ assistance Status: Acute (2) DVT prophylaxis Assessment & Plan: Pt currently anti-coagulated for a-fib and in therapeutic range. - c/w Coumadin 1mg, Daily Status: Acute (3) Atrial fibrillation Assessment & Plan: Chronic, rate-controlled, INR elevated 3.3, spoke with Dr Haque and will hold coumadin tonight, echo this admission c/w moderate impaired systolic dysfunction. - Cardiology Consult (Dr Haque) appreciated - c/w home regimen - Coumadin 1mg, PO, Daily Status: Chronic (4) Hypertension Assessment & Plan: Well-controlled - c/w home regimen Status: Chronic (5) Hypokalemia Assessment & Plan: Resolved Status: Resolved
--- NOTE | 2016-09-18 07:20 | CP.PCM.PN ---
Subjective - Date & Time of Evaluation Date of Evaluation: 09/18/16 Time of Evaluation: 07:20 - Subjective Subjective: 86 year old female with PMHx of HTN, CAD s/p CABG years ago, and DM seen at bedside for bilateral lower extremity celllulitis. Patient denies any pain to her lower extremities. She is in no acute distress, AAOx3. She admits the redness has gone down since she first came to the hospital. She denies n/f/v/c/ d/sob. Objective - Vital Signs/Intake and Output Vital Signs (last 24 hours): Temp Pulse Resp BP Pulse Ox 98.2 F 70 18 139/76 100 09/18/16 01:00 09/18/16 01:00 09/18/16 01:00 09/18/16 01:00 09/18/16 00:35 - Medications Medications: Current Medications Aspirin (Aspirin Chewable) 81 mg PO DAILY [facility] Last Admin: 09/16/16 10:10 Dose: 81 mg Atorvastatin Calcium (Lipitor) 10 mg PO HS [facility] Last Admin: 09/17/16 21:19 Dose: 10 mg Cholecalciferol (Vitamin D) 1,000 iu PO DAILY [facility] Last Admin: 09/17/16 08:52 Dose: 1,000 iu Famotidine (Pepcid) 20 mg PO DAILY [facility] Last Admin: 09/17/16 08:49 Dose: 20 mg Furosemide (Lasix) 20 mg PO DAILY [facility] Piperacillin Sod/Tazobactam (Sod 3.375 gm/ Sodium Chloride) 100 mls @ 100 mls/ hr IVPB Q6 [facility] Last Admin: 09/17/16 22:36 Dose: 100 mls/hr Vancomycin HCl 750 mg/ Sodium (Chloride) 250 mls @ 166.667 mls/hr IVPB Q12 [facility] Last Admin: 09/17/16 20:48 Dose: 166.667 mls/hr Metoprolol Tartrate (Lopressor) 75 mg PO 0800,1700 [facility] Last Admin: 09/17/16 16:33 Dose: 75 mg Nitroglycerin (Nitro-Dur 0.2 Mg/Hr Patch) 1 patch TD HS [facility] Last Admin: 09/17/16 21:21 Dose: 1 patch Potassium Chloride (K-Dur 20 Meq Er Tab) 20 meq PO BID [facility] Last Admin: 09/17/16 16:43 Dose: 20 meq Potassium Phos/Sodium Phos (Neutra-Phos) 1 pkt PO BID [facility] Last Admin: 09/17/16 16:35 Dose: 1 pkt Simethicone (Mylicon Chew Tab) 80 mg PO TID PRN PRN Reason: Flatulence Last Admin: 09/17/16 12:01 Dose: 80 mg - Labs Labs: 09/18/16 05:45 09/17/16 17:45 PT 27.5 SECONDS (9.6-11.2) H 09/17/16 05:25 INR 2.64 (0.92-1.08) H 09/17/16 05:25 APTT 40.6 SECONDS (23.3-32.5) H 09/16/16 08:32 - Constitutional Appears: Well, Non-toxic, No Acute Distress - Extremities Exam Additional comments: Vasc:DP and PT pulses palpable 2/4 b/l. TG warm to warm, CFT < 3 sec to all digits. No edema noted. Neuro: Gross sensation diminished Derm: Erythema is resolving, on the right it from the midcalf to the digits and on the left from the midfoot to the digits. superficial healed ulceration noted to right heel, no open lesions, hyperkeratotic lesion noted to plantar medial 1st metatarsal head of left foot, diffuse erythema to foot and legs b/l, nails are thickened and dystrophic, hallucal nails are partially removed with darkish discoloration from fungal nail treatment, no purulence, no drainage, no malodor , no fluctuance, no underlying abscess formation Ortho: No pain on palpation to lower extremities b/l. - Neurological Exam Neurological Exam: Alert, Awake, Oriented x3 - Psychiatric Exam Psychiatric exam: Normal Affect, Normal Mood Assessment and Plan - Assessment and Plan (Free Text) Assessment: 86 y/o female seen at bedside with PMHx of Arthritis, Atrial Fibrillation, CAD, HTN, Hypercholesterolemia, Hyperlipidemia, for bilateral lower extremity cellulitis Plan: Patient examined and evaluated Chart and vitals reviewed Discussed in detail with attending Dr. Obrien Labs and vitals reviewed; currently afebrile, WBC 8.0 (09/18/16) Patient to continue to wear offloading boots while in bed Lower extremity US pending Continue IV abx -Vanco and Zosyn Podiatry will continue to monitor while patient remains in house
--- NOTE | 2016-09-18 09:30 | CP.PCM.PN ---
Subjective - Date & Time of Evaluation Date of Evaluation: 09/18/16 Time of Evaluation: 09:00 - Subjective Subjective: Redness over ankles and feet much less No chills or fever HR 70 BPM irreg BP 130/70 mm Hg No gallop/ no rales Had arterial studies done this AM (await results) Warfarin to be given based on INR Objective - Vital Signs/Intake and Output Vital Signs (last 24 hours): Temp Pulse Resp BP Pulse Ox 98.3 F 95 H 18 152/71 H 100 09/18/16 08:05 09/18/16 08:05 09/18/16 08:05 09/18/16 08:05 09/18/16 08:05 - Medications Medications: Current Medications Aspirin (Aspirin Chewable) 81 mg PO DAILY [facility] Last Admin: 09/16/16 10:10 Dose: 81 mg Atorvastatin Calcium (Lipitor) 10 mg PO [facility] Last Admin: 09/17/16 21:19 Dose: 10 mg Cholecalciferol (Vitamin D) 1,000 iu PO DAILY [facility] Last Admin: 09/17/16 08:52 Dose: 1,000 iu Famotidine (Pepcid) 20 mg PO DAILY [facility] Last Admin: 09/17/16 08:49 Dose: 20 mg Furosemide (Lasix) 20 mg PO DAILY [facility] Piperacillin Sod/Tazobactam (Sod 3.375 gm/ Sodium Chloride) 100 mls @ 100 mls/ hr IVPB Q6 [facility] Last Admin: 09/18/16 04:30 Dose: 100 mls/hr Vancomycin HCl 750 mg/ Sodium (Chloride) 250 mls @ 166.667 mls/hr IVPB Q12 [facility] Last Admin: 09/17/16 20:48 Dose: 166.667 mls/hr Metoprolol Tartrate (Lopressor) 75 mg PO 0800,1700 [facility] Last Admin: 09/17/16 16:33 Dose: 75 mg Nitroglycerin (Nitro-Dur 0.2 Mg/Hr Patch) 1 patch TD [facility] Last Admin: 09/17/16 21:21 Dose: 1 patch Potassium Chloride (K-Dur 20 Meq Er Tab) 20 meq PO BID [facility] Last Admin: 09/17/16 16:43 Dose: 20 meq Potassium Phos/Sodium Phos (Neutra-Phos) 1 pkt PO BID [facility] Last Admin: 09/17/16 16:35 Dose: 1 pkt Simethicone (Mylicon Chew Tab) 80 mg PO TID PRN PRN Reason: Flatulence Last Admin: 09/17/16 12:01 Dose: 80 mg - Labs Labs: 09/18/16 05:45 09/17/16 17:45 PT 27.5 SECONDS (9.6-11.2) H 09/17/16 05:25 INR 2.64 (0.92-1.08) H 09/17/16 05:25 APTT 40.6 SECONDS (23.3-32.5) H 09/16/16 08:32
[2016-09-18] MEDS: Potassium & Sodium Phosphate PO SCH ×2 (10:02→17:23)
[2016-09-18] MEDS: Potassium Chloride 20 mEq ER Tab PO SCH ×2 (10:08→17:20)
--- NOTE | 2016-09-18 11:32 | US ---
PROCEDURE: Duplex ultrasound of the bilateral lower extremity arteries. HISTORY: cellulitis and nonpalpable pedal pulses COMPARISON: None available. TECHNIQUE: Grayscale and duplex Doppler evaluation of the bilateral common femoral, superficial femoral, popliteal, posterior tibial and dorsalis pedis arteries was performed.. FINDINGS: RIGHT LOWER EXTREMITY: RIGHT COMMON FEMORAL ARTERY: Widely patent. Maximal flow velocity of 142.1 cm/s. RIGHT SUPERFICIAL FEMORAL ARTERY: Widely patent. Maximal flow velocity of 117.4 cm/s. RIGHT POPLITEAL ARTERY:Widely patent. Maximal flow velocity of 93.1 cm/s. RIGHT POSTERIOR TIBIAL ARTERY: Widely patent. Maximal flow velocity of 56.6 cm/s. RIGHT DORSALIS PEDIS ARTERY: Widely patent. Maximal flow velocity of 31.3 cm/s. LEFT LOWER EXTREMITY: LEFT COMMON FEMORAL ARTERY: Widely patent. Maximal flow velocity of 136.5 cm/s. LEFT SUPERFICIAL FEMORAL ARTERY: Widely patent. Maximal flow velocity of 88.2 cm/s. LEFT POPLITEAL ARTERY:Widely patent. Maximal flow velocity of 65.4 cm/s. LEFT POSTERIOR TIBIAL ARTERY: Widely patent. Maximal flow velocity of 59.5 cm/s. LEFT DORSALIS PEDIS ARTERY: Widely patent. Maximal flow velocity of 38.5 cm/s. OTHER FINDINGS: None. IMPRESSION: Normal Duplex Doppler of the bilateral lower extremity arteries.
[2016-09-18] MEDS: Lidocaine 5% Patch TD SCH (12:34)
[2016-09-18] MEDS: Nitroglycerin 0.2 mg/hr Top Patch TD SCH (21:50)
[2016-09-19 06:47] LABS: HEMATOCRIT 32.6 % (34.0-47.0); MEAN CELL VOLUME 94.2 fl (81.0-99.0); MEAN CORPUSCULAR HEMOGLOBIN 31.6 pg (27.0-31.0); MEAN CORPUSCULAR HGB CONC 33.6 g/dL (33.0-37.0); RED CELL DISTRIBUTION WIDTH 13.3 % (11.5-14.5); WHITE BLOOD COUNT 6.4 K/uL (4.8-10.8)
--- NOTE | 2016-09-19 07:11 | CP.PCM.PN ---
Subjective - Date & Time of Evaluation Date of Evaluation: 09/19/16 Time of Evaluation: 07:11 - Subjective Subjective: 86F seen and examined at bedside with attending. Pt doing well, denies SOB, chest pain, or diarrhea. Denies any further pain in her LEFT knee since application of Lidoderm patch. Objective - Vital Signs/Intake and Output Vital Signs (last 24 hours): Temp Pulse Resp BP Pulse Ox 36.6 C 75 17 141/79 98 09/19/16 05:13 09/19/16 05:13 09/19/16 05:13 09/19/16 05:13 09/19/16 05:13 - Medications Medications: Current Medications Acetaminophen (Tylenol 325mg Tab) 650 mg PO Q4 PRN PRN Reason: Pain, moderate (4-7) Last Admin: 09/19/16 01:24 Dose: 650 mg Aspirin (Aspirin Chewable) 81 mg PO DAILY [facility] Last Admin: 09/18/16 10:01 Dose: 81 mg Atorvastatin Calcium (Lipitor) 10 mg PO HS [facility] Last Admin: 09/18/16 21:50 Dose: 10 mg Cephalexin Monohydrate (Keflex) 500 mg PO Q6 [facility] Last Admin: 09/19/16 04:59 Dose: 500 mg Cholecalciferol (Vitamin D) 1,000 iu PO DAILY [facility] Last Admin: 09/18/16 10:01 Dose: 1,000 iu Famotidine (Pepcid) 20 mg PO DAILY [facility] Last Admin: 09/18/16 09:54 Dose: 20 mg Furosemide (Lasix) 20 mg PO DAILY [facility] Last Admin: 09/18/16 09:58 Dose: 20 mg Lidocaine (Lidoderm) 1 ea TD DAILY [facility] Last Admin: 09/18/16 12:34 Dose: 1 ea Metoprolol Tartrate (Lopressor) 75 mg PO 0800,1700 [facility] Last Admin: 09/18/16 17:22 Dose: 75 mg Nitroglycerin (Nitro-Dur 0.2 Mg/Hr Patch) 1 patch TD [facility] Last Admin: 09/18/16 21:50 Dose: 1 patch Potassium Chloride (K-Dur 20 Meq Er Tab) 20 meq PO BID [facility] Last Admin: 09/18/16 17:20 Dose: 20 meq Potassium Phos/Sodium Phos (Neutra-Phos) 1 pkt PO BID [facility] Last Admin: 09/18/16 17:23 Dose: 1 pkt Simethicone (Mylicon Chew Tab) 80 mg PO TID PRN PRN Reason: Flatulence Last Admin: 09/17/16 12:01 Dose: 80 mg - Labs Labs: 09/18/16 05:45 09/17/16 17:45 PT 34.3 SECONDS (9.6-11.2) H* D 09/18/16 11:10 INR 3.30 (0.92-1.08) H 09/18/16 11:10 APTT 40.6 SECONDS (23.3-32.5) H 09/16/16 08:32 - Constitutional Appears: Well, Non-toxic, No Acute Distress - Head Exam Head Exam: ATRAUMATIC, NORMAL INSPECTION - Eye Exam Eye Exam: EOMI, Normal appearance - ENT Exam ENT Exam: Mucous Membranes Moist, Normal Exam - Neck Exam Neck Exam: Full ROM, Normal Inspection - Respiratory Exam Respiratory Exam: Clear to Ausculation Bilateral, NORMAL BREATHING PATTERN. absent: Rales, Wheezes - Cardiovascular Exam Cardiovascular Exam: Irregular Rhythm. absent: JVD - GI/Abdominal Exam GI & Abdominal Exam: Soft, Normal Bowel Sounds. absent: Tenderness - Extremities Exam Extremities Exam: Normal Capillary Refill. absent: Normal Inspection (residual trace erythema, palpable pulses), Pedal Edema - Neurological Exam Neurological Exam: Alert, Awake, Oriented x3 - Psychiatric Exam Psychiatric exam: Normal Affect, Normal Mood - Skin Skin Exam: Dry, Warm Assessment and Plan (1) Cellulitis, leg Assessment & Plan: Continues to improve on PO antibiotics, afebrile. - Podiatry Consult recs noted: c/w pressure soft boots while in bed - Physical Therapy - Cephalexin 500mg, PO, QID, [id number] - Lactobacillus - Physical Therapy - OOB to chair w/ assistance Status: Acute (2) DVT prophylaxis Assessment & Plan: Pt currently supra-therapeutic with INR- 4.2 this morning on coumadin for a- fib - HOLD Coumadin 1mg, Daily Status: Acute (3) Atrial fibrillation Assessment & Plan: Chronic, rate-controlled, INR-4.2 despite holding lastnight dose. after holding coumadin last night. Discussed with cardiology and likely 2/2 to antibiotics. - Cardiology Consult (Dr Haque) recs: HOLD coumadin for 2 days, then 1/2 dose until abx completed, after completion of abx resume regular dosing regimen, repeat INR in 1 week. - c/w home regimen rate control - Echo: echo this admission c/w moderate impaired systolic dysfunction. - HOLD Coumadin 1mg, PO Status: Chronic (4) Hypertension Assessment & Plan: Well-controlled - c/w home regimen Status: Chronic
[2016-09-19 07:34] LABS: CHLORIDE 99 mmol/L (98-107); POTASSIUM 4.6 MMOL/L (3.6-5.0); SODIUM 134 mmol/l (132-148)
[2016-09-19 07:37] LABS: BLOOD UREA NITROGEN 27 mg/dl (7-17); CARBON DIOXIDE 25 mmol/L (22-30); GFR AFRICAN-AMERICAN > 60; GLUCOSE,RANDOM 120 mg/dL (65-105); PHOSPHOROUS 3.2 mg/dl (2.5-4.5)
[2016-09-19 07:38] LABS: CALCIUM 8.6 mg/dL (8.4-10.2)
--- NOTE | 2016-09-19 08:46 | CP.PCM.PN ---
Subjective - Date & Time of Evaluation Date of Evaluation: 09/19/16 Time of Evaluation: 08:46 - Subjective Subjective: 86 year old female with PMHx of HTN, CAD s/p CABG years ago, and DM seen at bedside for bilateral lower extremity celllulitis. Patient denies any pain to her lower extremities. She is in no acute distress, AAOx3. She admits the redness has gone down since she first came to the hospital. Her daughter is concerned about her elongated toenails and wishes for them to be trimmed. She denies n/f/v/c/d/sob. Objective - Vital Signs/Intake and Output Vital Signs (last 24 hours): Temp Pulse Resp BP Pulse Ox 97.8 F 80 18 136/71 98 09/19/16 08:14 09/19/16 08:14 09/19/16 08:14 09/19/16 08:14 09/19/16 08:14 - Medications Medications: Current Medications Acetaminophen (Tylenol 325mg Tab) 650 mg PO Q4 PRN PRN Reason: Pain, moderate (4-7) Last Admin: 09/19/16 01:24 Dose: 650 mg Aspirin (Aspirin Chewable) 81 mg PO DAILY [facility] Last Admin: 09/18/16 10:01 Dose: 81 mg Atorvastatin Calcium (Lipitor) 10 mg PO HS [facility] Last Admin: 09/18/16 21:50 Dose: 10 mg Cephalexin Monohydrate (Keflex) 500 mg PO Q6 [facility] Last Admin: 09/19/16 04:59 Dose: 500 mg Cholecalciferol (Vitamin D) 1,000 iu PO DAILY [facility] Last Admin: 09/18/16 10:01 Dose: 1,000 iu Famotidine (Pepcid) 20 mg PO DAILY [facility] Last Admin: 09/18/16 09:54 Dose: 20 mg Furosemide (Lasix) 20 mg PO DAILY [facility] Last Admin: 09/18/16 09:58 Dose: 20 mg Lidocaine (Lidoderm) 1 ea TD DAILY [facility] Last Admin: 09/18/16 12:34 Dose: 1 ea Metoprolol Tartrate (Lopressor) 75 mg PO 0800,1700 [facility] Last Admin: 09/18/16 17:22 Dose: 75 mg Nitroglycerin (Nitro-Dur 0.2 Mg/Hr Patch) 1 patch TD HS [facility] Last Admin: 09/18/16 21:50 Dose: 1 patch Potassium Chloride (K-Dur 20 Meq Er Tab) 20 meq PO BID [facility] Last Admin: 09/18/16 17:20 Dose: 20 meq Potassium Phos/Sodium Phos (Neutra-Phos) 1 pkt PO BID [facility] Last Admin: 09/18/16 17:23 Dose: 1 pkt Simethicone (Mylicon Chew Tab) 80 mg PO TID PRN PRN Reason: Flatulence Last Admin: 09/17/16 12:01 Dose: 80 mg - Labs Labs: 09/19/16 05:35 09/19/16 05:35 PT 43.9 SECONDS (9.6-11.2) H* D 09/19/16 05:35 INR 4.22 (0.92-1.08) H 09/19/16 05:35 APTT 40.6 SECONDS (23.3-32.5) H 09/16/16 08:32 - Constitutional Appears: Well, Non-toxic, No Acute Distress - Extremities Exam Additional comments: Vasc: DP and PT pulses palpable 2/4 b/l. TG warm to warm, CFT < 3 sec to all digits. No edema noted. Neuro: Gross sensation diminished Derm: Erythema is resolving, on the right it from the midcalf to the digits and on the left from the midfoot to the digits. superficial healed ulceration noted to right heel, no open lesions, hyperkeratotic lesion noted to plantar medial 1st metatarsal head of left foot, diffuse erythema to foot and legs b/l, nails are thickened and dystrophic, hallucal nails are partially removed with darkish discoloration from fungal nail treatment, no purulence, no drainage, no malodor , no fluctuance, no underlying abscess formation Ortho: No pain on palpation to lower extremities b/l. - Neurological Exam Neurological Exam: Alert, Awake, Oriented x3 - Psychiatric Exam Psychiatric exam: Normal Affect, Normal Mood Assessment and Plan - Assessment and Plan (Free Text) Assessment: 86 y/o female seen at bedside with PMHx of Arthritis, Atrial Fibrillation, CAD, HTN, Hypercholesterolemia, Hyperlipidemia, for bilateral lower extremity cellulitis Plan: Patient examined and evaluated Chart and vitals reviewed Discussed in detail with attending Dr. Obrien Labs and vitals reviewed; currently afebrile, WBC 6.4 (09/18/16) Offloading boots discontinue per PMD, patient to have heels offloaded with pillows at all times while in bed Nails 2-5 b/l were debrided in thickness and in length without incident using nail nippers Lower extremity US - normal b/l extremity arteries Continue Physical therapy Continue IV abx -Vanco and Jagruti Podiatry will continue to monitor while patient remains in house
[2016-09-19] MEDS: Potassium & Sodium Phosphate PO SCH ×2 (09:02→16:21)
[2016-09-19] MEDS: Potassium Chloride 20 mEq ER Tab PO SCH ×2 (09:03→16:21)
[2016-09-19] MEDS: Lidocaine 5% Patch TD SCH (09:03)
--- NOTE | 2016-09-19 10:51 | CP.PCM.PN ---
Subjective - Date & Time of Evaluation Date of Evaluation: 09/19/16 Time of Evaluation: 09:55 - Subjective Subjective: Vital signs stable Arterial ultra sound imaging of lower extremities show normal flow INR 4.2 today (probably due to Keflex) Residents instructed on Warfarin dosing Pt's daughter (a nurse) also instructed re Warfsrin dosing. May be discharged. Objective - Vital Signs/Intake and Output Vital Signs (last 24 hours): Temp Pulse Resp BP Pulse Ox 97.8 F 80 18 136/71 98 09/19/16 08:14 09/19/16 09:01 09/19/16 08:14 09/19/16 09:03 09/19/16 08:14 - Medications Medications: Current Medications Acetaminophen (Tylenol 325mg Tab) 650 mg PO Q4 PRN PRN Reason: Pain, moderate (4-7) Last Admin: 09/19/16 01:24 Dose: 650 mg Aspirin (Aspirin Chewable) 81 mg PO DAILY [facility] Last Admin: 09/19/16 09:01 Dose: 81 mg Atorvastatin Calcium (Lipitor) 10 mg PO HS [facility] Last Admin: 09/18/16 21:50 Dose: 10 mg Cephalexin Monohydrate (Keflex) 500 mg PO Q6 [facility] Last Admin: 09/19/16 09:35 Dose: 500 mg Cholecalciferol (Vitamin D) 1,000 iu PO DAILY [facility] Last Admin: 09/19/16 09:03 Dose: 1,000 iu Famotidine (Pepcid) 20 mg PO DAILY [facility] Last Admin: 09/19/16 09:02 Dose: 20 mg Furosemide (Lasix) 20 mg PO DAILY [facility] Last Admin: 09/19/16 09:03 Dose: 20 mg Lidocaine (Lidoderm) 1 ea TD DAILY [facility] Last Admin: 09/19/16 09:03 Dose: 1 ea Metoprolol Tartrate (Lopressor) 75 mg PO 0800,1700 [facility] Last Admin: 09/19/16 09:01 Dose: 75 mg Nitroglycerin (Nitro-Dur 0.2 Mg/Hr Patch) 1 patch TD [facility] Last Admin: 09/18/16 21:50 Dose: 1 patch Potassium Chloride (K-Dur 20 Meq Er Tab) 20 meq PO BID [facility] Last Admin: 09/19/16 09:03 Dose: 20 meq Potassium Phos/Sodium Phos (Neutra-Phos) 1 pkt PO BID [facility] Last Admin: 09/19/16 09:02 Dose: 1 pkt Simethicone (Mylicon Chew Tab) 80 mg PO TID PRN PRN Reason: Flatulence Last Admin: 09/17/16 12:01 Dose: 80 mg - Labs Labs: 09/19/16 05:35 09/19/16 05:35 PT 43.9 SECONDS (9.6-11.2) H* D 09/19/16 05:35 INR 4.22 (0.92-1.08) H 09/19/16 05:35 APTT 40.6 SECONDS (23.3-32.5) H 09/16/16 08:32
[2016-09-19 12:09] VITALS: RESP 20
[2016-09-19 16:07] VITALS: O2SAT 98
[2016-09-19 19:23] VITALS: TEMP 97.9
[2016-09-19] MEDS: Nitroglycerin 0.2 mg/hr Top Patch TD SCH (21:08)
[2016-09-19 21:09] VITALS: BP 148/74; PULSE 76
== END 2016-09-19 23:40 | DRG 563 ==
LOC: H.ER 23:58 → H.ERHOLD 09-16 05:15 → H.TEL 09-16 11:05
PROVIDERS: ADMIT Family Medicine; ATTEND Family Medicine
DX: L03.115 Cellulitis of right lower limb (principal); I50.21 Acute systolic (congestive) heart failure; E11.22 Type 2 diabetes mellitus with diabetic chronic kidney disease; I48.2 Chronic atrial fibrillation; D68.8 Other specified coagulation defects; E87.1 Hypo-osmolality and hyponatremia; E86.0 Dehydration; D64.9 Anemia, unspecified; I25.10 Atherosclerotic heart disease of native coronary artery without angina pectoris; E78.5 Hyperlipidemia, unspecified; N18.9 Chronic kidney disease, unspecified; I13.0 Hypertensive heart and chronic kidney disease with heart failure and stage 1 through stage 4 chronic kidney disease, or unspecified chronic kidney disease; L03.116 Cellulitis of left lower limb; I45.10 Unspecified right bundle-branch block; Z93.3 Colostomy status; Z95.0 Presence of cardiac pacemaker; Z95.1 Presence of aortocoronary bypass graft; E78.00 Pure hypercholesterolemia, unspecified; T36.1X5A Adverse effect of cephalosporins and other beta-lactam antibiotics, initial encounter; Z79.01 Long term (current) use of anticoagulants

== ENCOUNTER 2016-09-20 00:32 | Inpatient (IN) | payer MEDICAID ==
[2016-09-20 01:05] VITALS: BMI 23.3
[2016-09-20 07:33] LABS: HEMATOCRIT 34.7 % (34.0-47.0); MEAN CELL VOLUME 94.3 fl (81.0-99.0); MEAN CORPUSCULAR HEMOGLOBIN 31.6 pg (27.0-31.0); MEAN CORPUSCULAR HGB CONC 33.5 g/dL (33.0-37.0); RED CELL DISTRIBUTION WIDTH 13.2 % (11.5-14.5); WHITE BLOOD COUNT 7.9 K/uL (4.8-10.8)
[2016-09-20 07:48] LABS: BLOOD UREA NITROGEN 24 mg/dl (7-17); CARBON DIOXIDE 25 mmol/L (22-30); CHLORIDE 99 mmol/L (98-107); GFR AFRICAN-AMERICAN > 60; GLUCOSE,RANDOM 146 mg/dL (65-105); MAGNESIUM 1.8 MG/DL (1.6-2.3); POTASSIUM 4.8 MMOL/L (3.6-5.0); SODIUM 139 mmol/l (132-148)
[2016-09-20 08:21] VITALS: RESP 20
[2016-09-20] MEDS: Potassium Chloride 20 mEq ER Tab PO SCH ×2 (08:51→17:23)
[2016-09-20] MEDS: Potassium & Sodium Phosphate PO SCH ×2 (08:53→17:27)
[2016-09-20] MEDS: Simethicone 80 mg Chewtab PO SCH ×3 (09:01→17:30)
--- NOTE | 2016-09-20 10:28 | CP.PCM.HP ---
History of Present Illness - History of Present Illness History of Present Illness: This is an 86 y/o female admitted from the medical floor for general debility. She was admitted for cellulitis of the right leg and mild CHF. She responded very well to treatment but was so debilitated and had problems with gait and balance and lower ext strength hence suggested rehab. Currently noted to have dark discoloration of both feet and ankle. Recent arterial doppler of lower ext was normal, She is noted to have del swelling of DIPs on both hands sandee right. She denies SOB or CP. Medical Hx HTN CHF with mod sys dysfunction celulitis atrial fibrillation Present on Admission - Present on Admission Any Indicators Present on Admission: No History of DVT/PE: No History of Uncontrolled Diabetes: No Urinary Catheter: No Decubitus Ulcer Present: No Review of Systems - Musculoskeletal Musculoskeletal: Abnormal Gait, Arthralgias Past Patient History - Past Medical History & Family History Past Medical History?: Yes - Past Social History Smoking Status: Never Smoked - CARDIAC Hx Cardiac Disorders: Yes (Afib, HTN, high cholesterol) Hx Hypercholesterolemia: Yes Hx Hypertension: Yes - PULMONARY Hx Respiratory Disorders: No - NEUROLOGICAL Hx Neurological Disorder: No - HEENT Hx HEENT Problems: No - RENAL Hx Chronic Kidney Disease: No - ENDOCRINE/METABOLIC Other/Comment: BORDERLINE DIABETIC - HEMATOLOGICAL/ONCOLOGICAL Hx Blood Disorders: No Hx AIDS: No Hx Human Immunodeficiency Virus (HIV): No - INTEGUMENTARY Hx Dermatological Problems: No - MUSCULOSKELETAL/RHEUMATOLOGICAL Hx Arthritis: Yes Hx Falls: Yes - GASTROINTESTINAL Hx Gastrointestinal Disorders: Yes Hx Colostomy: Yes - GENITOURINARY/GYNECOLOGICAL Hx Genitourinary Disorders: Yes - PSYCHIATRIC Hx Emotional Abuse: No Hx Physical Abuse: No Hx Substance Use: No - SURGICAL HISTORY Hx Coronary Artery Bypass Graft: Yes - ANESTHESIA Hx Anesthesia: Yes Hx Anesthesia Reactions: No Hx Malignant Hyperthermia: No Has any member of the family had a problem w/ anesthesia?: No Meds Allergies/Adverse Reactions: Allergies Allergy/AdvReac Type Severity Reaction Status Date / Time No Known Allergies Allergy Verified 09/16/16 00:01 Physical Exam - Head Exam Head Exam: NORMAL INSPECTION - Eye Exam Eye Exam: Normal appearance - ENT Exam ENT Exam: Mucous Membranes Moist - Respiratory Exam Respiratory Exam: Clear to Auscultation Bilateral - Cardiovascular Exam Cardiovascular Exam: Irregular Rhythm - GI/Abdominal Exam GI & Abdominal Exam: Normal Bowel Sounds - Extremities Exam Extremities exam: Positive for: joint swelling, tenderness Additional comments: feet discoloration - Neurological Exam Neurological exam: CN II-XII Intact - Psychiatric Exam Psychiatric exam: Normal Mood Results - Vital Signs Recent Vital Signs: Last Vital Signs Temp 97.5 F L 09/20/16 08:19 Pulse 79 09/20/16 08:51 Resp 20 09/20/16 08:19 BP 177/92 H 09/20/16 08:53 Pulse Ox 98 09/20/16 08:19 - Labs Result Diagrams: 09/20/16 07:06 09/20/16 07:06 Labs: Laboratory Results - last 24 hr 09/20/16 09/20/16 04:42 07:06 WBC 7.9 RBC 3.68 L Hgb 11.6 L Hct 34.7 MCV 94.3 MCH 31.6 H MCHC 33.5 RDW 13.2 Plt Count 161 PT 33.6 H* D INR 3.23 H Sodium 139 Potassium 4.8 Chloride 99 Carbon Dioxide 25 Anion Gap 19 BUN 24 H Creatinine 0.9 Est GFR ( Amer) > 60 Est GFR (Non-Af Amer) 60 POC Glucose (mg/dL) 141 H Random Glucose 146 H Calcium 9.0 Magnesium 1.8 Assessment & Plan (1) Coronary artery disease Status: Acute (2) Atrial fibrillation Status: Chronic (3) Physical debility Status: Acute (4) 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
--- NOTE | 2016-09-20 11:42 | CP.PCM.CON ---
History of Present Illness - History of Present Illness History of Present Illness: Full Note Dictated A Fib with VVI pacemaker Implant CAD (Stable with CABG) LV syst dysfunction DM(II) with HTN Recent cellulitis/ on Kflex INR being monitored. Past Patient History - Past Medical History & Family History Past Medical History?: Yes - Past Social History Smoking Status: Never Smoked - CARDIAC Hx Cardiac Disorders: Yes (Afib, HTN, high cholesterol) Hx Hypercholesterolemia: Yes Hx Hypertension: Yes - PULMONARY Hx Respiratory Disorders: No - NEUROLOGICAL Hx Neurological Disorder: No - HEENT Hx HEENT Problems: No - RENAL Hx Chronic Kidney Disease: No - ENDOCRINE/METABOLIC Other/Comment: BORDERLINE DIABETIC - HEMATOLOGICAL/ONCOLOGICAL Hx Blood Disorders: No Hx AIDS: No Hx Human Immunodeficiency Virus (HIV): No - INTEGUMENTARY Hx Dermatological Problems: No - MUSCULOSKELETAL/RHEUMATOLOGICAL Hx Arthritis: Yes Hx Falls: Yes - GASTROINTESTINAL Hx Gastrointestinal Disorders: Yes Hx Colostomy: Yes - GENITOURINARY/GYNECOLOGICAL Hx Genitourinary Disorders: Yes - PSYCHIATRIC Hx Emotional Abuse: No Hx Physical Abuse: No Hx Substance Use: No - SURGICAL HISTORY Hx Coronary Artery Bypass Graft: Yes - ANESTHESIA Hx Anesthesia: Yes Hx Anesthesia Reactions: No Hx Malignant Hyperthermia: No Has any member of the family had a problem w/ anesthesia?: No Meds Allergies/Adverse Reactions: Allergies Allergy/AdvReac Type Severity Reaction Status Date / Time No Known Allergies Allergy Verified 09/16/16 00:01 - Medications Medications: Current Medications Acetaminophen (Tylenol 325mg Tab) 650 mg PO Q4 PRN PRN Reason: Pain, moderate (4-7) Aspirin (Aspirin Chewable) 81 mg PO DAILY [facility] Last Admin: 09/20/16 08:51 Dose: 81 mg Atorvastatin Calcium (Lipitor) [address] [facility] Camphor/Menthol (Bengay) 1 applic TOP QID PRN PRN Reason: Arthritis Cephalexin Monohydrate (Keflex) 500 mg PO Q6 [facility] Last Admin: 09/20/16 04:47 Dose: 500 mg Cholecalciferol (Vitamin D) 1,000 iu PO DAILY [facility] Last Admin: 09/20/16 08:51 Dose: 1,000 iu Famotidine (Pepcid) 20 mg PO DAILY [facility] Last Admin: 09/20/16 08:51 Dose: 20 mg Furosemide (Lasix) 20 mg PO DAILY [facility] Last Admin: 09/20/16 08:53 Dose: 20 mg Metoprolol Tartrate (Lopressor) 75 mg PO Q12@0800,1700 [facility] Last Admin: 09/20/16 08:51 Dose: 75 mg Nitroglycerin (Nitro-Dur 0.2 Mg/Hr Patch) 1 patch TD HS [facility] Potassium Chloride (K-Dur 20 Meq Er Tab) 20 meq PO BID [facility] Last Admin: 09/20/16 08:51 Dose: 20 meq Potassium Phos/Sodium Phos (Neutra-Phos) 1 pkt PO BID [facility] Last Admin: 09/20/16 08:53 Dose: 1 pkt Simethicone (Mylicon Chew Tab) 80 mg PO TID [facility] Last Admin: 09/20/16 09:01 Dose: 80 mg Results - Vital Signs Recent Vital Signs: Last Vital Signs Temp 97.5 F L 09/20/16 08:19 Pulse 79 09/20/16 08:51 Resp 20 09/20/16 08:19 BP 177/92 H 09/20/16 08:53 Pulse Ox 98 09/20/16 08:19 - Labs Result Diagrams: 09/20/16 07:06 09/20/16 07:06 Labs: Laboratory Results - last 24 hr 09/20/16 09/20/16 09/20/16 04:42 07:06 10:52 WBC 7.9 RBC 3.68 L Hgb 11.6 L Hct 34.7 MCV 94.3 MCH 31.6 H MCHC 33.5 RDW 13.2 Plt Count 161 PT 33.6 H* D INR 3.23 H Sodium 139 Potassium 4.8 Chloride 99 Carbon Dioxide 25 Anion Gap 19 BUN 24 H Creatinine 0.9 Est GFR ( Amer) > 60 Est GFR (Non-Af Amer) 60 POC Glucose (mg/dL) 141 H 259 H Random Glucose 146 H Calcium 9.0 Magnesium 1.8
--- NOTE | 2016-09-20 12:00 | CON ---
DATE: 09/20/2016 She is hospitalized under Dr. Melgar's care in the telemetry unit. This 86-year-old diabetic female with a long history of atrial fibrillation who has required a VVI pa cemaker implant, was recently hospitalized with chills and fever, was found to have cellulitis of low er extremities, and at this juncture following intravenous antibiotic therapy, is in the transitional care unit before returning home. She has stable coronary artery disease and has undergone coronary bypass graft surgery approximately 3 years back. She is mostly homebound; mostly chair and bed bound with markedly reduced physical activity. She is on oral anticoagulation with Coumadin because of at rial fibrillation. PHYSICAL EXAMINATION: GENERAL: Shows an elderly female sitting up in a wheelchair, alert, awake, coherent. Afebrile with a pulse rate of 68 beats per minute, irregularly irregular, and a blood pressure of 140 /74 mmHg. Her jugular venous pressure was not elevated. There was minimal pitting edema over both lower extremities. The pedal pulses were feeble, but disti nctly present. There were no carotid bruits. The scar of sternotomy was evident. The first and second heart sounds were normal. There was a long apical systolic murmur. There was no gallop rhythm. There were no rales. ABDOMEN: Soft. Liver and spleen were not palpable. Her electrocardiogram and echocardiogram done recently were noted. The labs from her recent hospitalization in the acute care section of the hospital were noted. Her I NR was 4.2 yesterday, and her warfarin was held. I have requested daily PT/INRs, and Coumadin would be ordered according to the INR results. At this juncture, she is hemodynamically stable. Larry Haque MD cc: 23 TT: 09/20/2016 11:59:40 Confirmation # [id number] Dictation # [id number]
[2016-09-20] MEDS: Nitroglycerin 0.2 mg/hr Top Patch TD SCH (23:07)
[2016-09-21] MEDS: Potassium & Sodium Phosphate PO SCH ×2 (08:46→17:12)
[2016-09-21] MEDS: Potassium Chloride 20 mEq ER Tab PO SCH ×2 (08:46→17:09)
[2016-09-21] MEDS: Simethicone 80 mg Chewtab PO SCH ×3 (08:48→17:20)
--- NOTE | 2016-09-21 19:25 | CP.PCM.PN ---
Subjective - Date & Time of Evaluation Date of Evaluation: 09/21/16 Time of Evaluation: 18:30 - Subjective Subjective: 86 y/o female patient seen and evaluated at bedside in TCU for follow up on bilateral lower extremities cellulitis. Patient states that her cellulitis has gotten better. Patient's family members present at bedside. Patient and her family member were c/o small piece of left foot 4th digit toe nail and it caught the sock. Patient denies any pedal pain at this time. Patient was wearing off loading boots bilaterally. Patient denies any symptoms of N/V/F/SOB/ Chest pain. Objective - Vital Signs/Intake and Output Vital Signs (last 24 hours): Temp Pulse Resp BP Pulse Ox 97.5 F L 65 20 153/72 H 99 09/21/16 17:39 09/21/16 17:39 09/21/16 17:39 09/21/16 17:39 09/21/16 17:39 - Medications Medications: Current Medications Acetaminophen (Tylenol 325mg Tab) 650 mg PO Q4 PRN PRN Reason: Pain, moderate (4-7) Last Admin: 09/21/16 06:01 Dose: 650 mg Aspirin (Aspirin Chewable) 81 mg PO DAILY [facility] Last Admin: 09/21/16 08:46 Dose: 81 mg Atorvastatin Calcium (Lipitor) 10 mg PO HS [facility] Last Admin: 09/20/16 21:53 Dose: 10 mg Camphor/Menthol (Bengay) 1 applic TOP QID PRN PRN Reason: Arthritis Cephalexin Monohydrate (Keflex) 500 mg PO Q6 [facility] Last Admin: 09/21/16 17:08 Dose: 500 mg Cholecalciferol (Vitamin D) 1,000 iu PO DAILY [facility] Last Admin: 09/21/16 08:44 Dose: 1,000 iu Famotidine (Pepcid) 20 mg PO DAILY [facility] Last Admin: 09/21/16 08:45 Dose: 20 mg Furosemide (Lasix) 20 mg PO DAILY [facility] Last Admin: 09/21/16 08:45 Dose: 20 mg Lactic Acid (Lac-Hydrin 12% Lotion (225 G)) 1 applic TOP Q12 [facility] Last Admin: 09/21/16 13:09 Dose: 1 applic Metoprolol Tartrate (Lopressor) 75 mg PO Q12@0800,1700 [facility] Last Admin: 09/21/16 17:10 Dose: 75 mg Nitroglycerin (Nitro-Dur 0.2 Mg/Hr Patch) 1 patch TD HS [facility] Last Admin: 09/20/16 23:07 Dose: 1 patch Potassium Chloride (K-Dur 20 Meq Er Tab) 20 meq PO BID [facility] Last Admin: 09/21/16 17:09 Dose: 20 meq Potassium Phos/Sodium Phos (Neutra-Phos) 1 pkt PO BID [facility] Last Admin: 09/21/16 17:12 Dose: 1 pkt Simethicone (Mylicon Chew Tab) 80 mg PO TID [facility] Last Admin: 09/21/16 17:20 Dose: 80 mg - Labs Labs: 09/20/16 07:06 09/20/16 07:06 PT 29.1 SECONDS (9.6-11.2) H 09/21/16 06:30 INR 2.80 (0.92-1.08) H 09/21/16 06:30 - Constitutional Appears: Well, Non-toxic, No Acute Distress - Extremities Exam Additional comments: Vasc: DP and PT pulses palpable 2/4 b/l. TG warm to warm, CFT < 3 sec to all digits. No edema noted. Neuro: Gross sensation diminished Derm: Erythema is resolving, on the right it from the midcalf to the digits and on the left from the midfoot to the digits. superficial healed ulceration noted to right heel, no open lesions, hyperkeratotic lesion noted to plantar medial 1st metatarsal head of left foot, diffuse erythema to foot, no purulence, no drainage, no malodor, no fluctuance, no underlying abscess formation, lateral aspect of left foot 4ht digit toe nail was sticking out from the lateral nail plate border. Ortho: No pain on palpation to lower extremities b/l. - Neurological Exam Neurological Exam: Alert, Awake Assessment and Plan - Assessment and Plan (Free Text) Assessment: 86 y/o female patient with bilateral lower extremity cellulitis and elongated left foot 4th digit toe nail. Plan: Patient seen and evaluated at bedside in TCU All the questions and concerns were addressed Discussed with attending Dr. Obrien Labs and vitals were reviewed Advised patient to keep using off loading boots when patient remains in bed Left foot 4ht digit toe nail was debrided with sterile nail nippers, Patient tolerated the procedure well. Continue Physical therapy Continue IV abx treatment Podiatry will continue to follow while patient remains in house.
[2016-09-21] MEDS: Menthol/Methyl Salicylate Oinment TOP PRN (21:23)
[2016-09-21] MEDS: Nitroglycerin 0.2 mg/hr Top Patch TD SCH (21:24)
[2016-09-22] MEDS: Potassium Chloride 20 mEq ER Tab PO SCH ×2 (08:36→16:47)
[2016-09-22] MEDS: Potassium & Sodium Phosphate PO SCH ×2 (08:39→16:48)
[2016-09-22] MEDS: Simethicone 80 mg Chewtab PO SCH ×3 (09:35→16:49)
[2016-09-22] MEDS: Menthol/Methyl Salicylate Oinment TOP PRN (21:13)
[2016-09-22] MEDS: Nitroglycerin 0.2 mg/hr Top Patch TD SCH (21:21)
--- NOTE | 2016-09-23 01:10 | CP.PCM.PN ---
Subjective - Date & Time of Evaluation Date of Evaluation: 09/21/16 Time of Evaluation: 09:15 - Subjective Subjective: patient continues to do well has minimal pain complains of aches and pains on most joints Noted elevated FBS Not on any po meds, BUN and creatinine were normal. Objective - Vital Signs/Intake and Output Vital Signs (last 24 hours): Temp Pulse Resp BP Pulse Ox 97.7 F 75 20 150/80 97 09/22/16 20:32 09/22/16 21:21 09/22/16 20:32 09/22/16 20:32 09/22/16 20:32 - Medications Medications: Current Medications Acetaminophen (Tylenol 325mg Tab) 650 mg PO Q4 PRN PRN Reason: Pain, moderate (4-7) Last Admin: 09/22/16 23:16 Dose: 650 mg Aspirin (Aspirin Chewable) 81 mg PO DAILY [facility] Last Admin: 09/22/16 08:35 Dose: 81 mg Atorvastatin Calcium (Lipitor) 10 mg PO HS [facility] Last Admin: 09/22/16 21:13 Dose: 10 mg Camphor/Menthol (Bengay) 1 applic TOP QID PRN PRN Reason: Arthritis Last Admin: 09/22/16 21:13 Dose: 1 u Cephalexin Monohydrate (Keflex) 500 mg PO Q6 [facility] Last Admin: 09/22/16 21:13 Dose: 500 mg Cholecalciferol (Vitamin D) 1,000 iu PO DAILY [facility] Last Admin: 09/22/16 08:39 Dose: 1,000 iu Famotidine (Pepcid) 20 mg PO DAILY [facility] Last Admin: 09/22/16 08:39 Dose: 20 mg Furosemide (Lasix) 20 mg PO DAILY [facility] Last Admin: 09/22/16 08:36 Dose: 20 mg Lactic Acid (Lac-Hydrin 12% Lotion (225 G)) 1 applic TOP Q12 [facility] Last Admin: 09/22/16 21:22 Dose: 1 applic Metoprolol Tartrate (Lopressor) 75 mg PO Q12@0800,1700 [facility] Last Admin: 09/22/16 16:47 Dose: 75 mg Nitroglycerin (Nitro-Dur 0.2 Mg/Hr Patch) 1 patch TD HS [facility] Last Admin: 09/22/16 21:21 Dose: 1 patch Potassium Chloride (K-Dur 20 Meq Er Tab) 20 meq PO BID [facility] Last Admin: 09/22/16 16:47 Dose: 20 meq Potassium Phos/Sodium Phos (Neutra-Phos) 1 pkt PO BID [facility] Last Admin: 09/22/16 16:48 Dose: 1 pkt Simethicone (Mylicon Chew Tab) 80 mg PO TID [facility] Last Admin: 09/22/16 16:49 Dose: 80 mg - Labs Labs: 09/20/16 07:06 09/20/16 07:06 PT 29.6 SECONDS (9.6-11.2) H 09/22/16 05:30 INR 2.85 (0.92-1.08) H 09/22/16 05:30 - Head Exam Head Exam: NORMAL INSPECTION - Eye Exam Eye Exam: Normal appearance - ENT Exam ENT Exam: Mucous Membranes Moist - Respiratory Exam Respiratory Exam: Clear to Ausculation Bilateral, NORMAL BREATHING PATTERN - Cardiovascular Exam Cardiovascular Exam: Irregular Rhythm - GI/Abdominal Exam GI & Abdominal Exam: Normal Bowel Sounds - Neurological Exam Neurological Exam: Awake Assessment and Plan (1) Coronary artery disease Status: Acute (2) Atrial fibrillation Status: Chronic (3) Physical debility Status: Acute (4) 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
--- NOTE | 2016-09-23 01:12 | CP.PCM.PN ---
Subjective - Date & Time of Evaluation Date of Evaluation: 09/22/16 Time of Evaluation: 10:10 - Subjective Subjective: patient remains well Has no chest pain or SOB Has some joint pains' Has no fever' Did well with PT yesterday. Objective - Vital Signs/Intake and Output Vital Signs (last 24 hours): Temp Pulse Resp BP Pulse Ox 97.7 F 75 20 150/80 97 09/22/16 20:32 09/22/16 21:21 09/22/16 20:32 09/22/16 20:32 09/22/16 20:32 - Medications Medications: Current Medications Acetaminophen (Tylenol 325mg Tab) 650 mg PO Q4 PRN PRN Reason: Pain, moderate (4-7) Last Admin: 09/22/16 23:16 Dose: 650 mg Aspirin (Aspirin Chewable) 81 mg PO DAILY [facility] Last Admin: 09/22/16 08:35 Dose: 81 mg Atorvastatin Calcium (Lipitor) 10 mg PO HS [facility] Last Admin: 09/22/16 21:13 Dose: 10 mg Camphor/Menthol (Bengay) 1 applic TOP QID PRN PRN Reason: Arthritis Last Admin: 09/22/16 21:13 Dose: 1 u Cephalexin Monohydrate (Keflex) 500 mg PO Q6 [facility] Last Admin: 09/22/16 21:13 Dose: 500 mg Cholecalciferol (Vitamin D) 1,000 iu PO DAILY [facility] Last Admin: 09/22/16 08:39 Dose: 1,000 iu Famotidine (Pepcid) 20 mg PO DAILY [facility] Last Admin: 09/22/16 08:39 Dose: 20 mg Furosemide (Lasix) 20 mg PO DAILY [facility] Last Admin: 09/22/16 08:36 Dose: 20 mg Lactic Acid (Lac-Hydrin 12% Lotion (225 G)) 1 applic TOP Q12 [facility] Last Admin: 09/22/16 21:22 Dose: 1 applic Metoprolol Tartrate (Lopressor) 75 mg PO Q12@0800,1700 [facility] Last Admin: 09/22/16 16:47 Dose: 75 mg Nitroglycerin (Nitro-Dur 0.2 Mg/Hr Patch) 1 patch TD HS [facility] Last Admin: 09/22/16 21:21 Dose: 1 patch Potassium Chloride (K-Dur 20 Meq Er Tab) 20 meq PO BID [facility] Last Admin: 09/22/16 16:47 Dose: 20 meq Potassium Phos/Sodium Phos (Neutra-Phos) 1 pkt PO BID [facility] Last Admin: 09/22/16 16:48 Dose: 1 pkt Simethicone (Mylicon Chew Tab) 80 mg PO TID [facility] Last Admin: 09/22/16 16:49 Dose: 80 mg - Labs Labs: 09/20/16 07:06 09/20/16 07:06 PT 29.6 SECONDS (9.6-11.2) H 09/22/16 05:30 INR 2.85 (0.92-1.08) H 09/22/16 05:30 - Head Exam Head Exam: NORMAL INSPECTION - Eye Exam Eye Exam: Normal appearance - ENT Exam ENT Exam: Mucous Membranes Moist - Respiratory Exam Respiratory Exam: Clear to Ausculation Bilateral - Cardiovascular Exam Cardiovascular Exam: Irregular Rhythm - Extremities Exam Extremities Exam: Normal Capillary Refill - Neurological Exam Neurological Exam: CN II-XII Intact Assessment and Plan (1) Coronary artery disease Status: Acute (2) Atrial fibrillation Status: Chronic (3) Physical debility Status: Acute (4) 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 - Assessment and Plan (Free Text) Plan: Cont meds Cont PT start januvia cont PT
--- NOTE | 2016-09-23 09:01 | CP.PCM.PN ---
Subjective - Date & Time of Evaluation Date of Evaluation: 09/23/16 Time of Evaluation: 08:50 - Subjective Subjective: Generally feeling well, feeling stronger Has been doing well at PT A Fib at 74 BPM BP 136/70 mm HG No signs of CHF INR still awaited Will order Warfarin when INR results are available Objective - Vital Signs/Intake and Output Vital Signs (last 24 hours): Temp Pulse Resp BP Pulse Ox 97.7 F 74 20 152/84 H 99 09/23/16 08:18 09/23/16 08:18 09/23/16 08:18 09/23/16 08:18 09/23/16 08:18 - Medications Medications: Current Medications Acetaminophen (Tylenol 325mg Tab) 650 mg PO Q4 PRN PRN Reason: Pain, moderate (4-7) Last Admin: 09/22/16 23:16 Dose: 650 mg Aspirin (Aspirin Chewable) 81 mg PO DAILY [facility] Last Admin: 09/22/16 08:35 Dose: 81 mg Atorvastatin Calcium (Lipitor) 10 mg PO HS [facility] Last Admin: 09/22/16 21:13 Dose: 10 mg Camphor/Menthol (Bengay) 1 applic TOP QID PRN PRN Reason: Arthritis Last Admin: 09/22/16 21:13 Dose: 1 u Cephalexin Monohydrate (Keflex) 500 mg PO Q6 [facility] Last Admin: 09/23/16 04:54 Dose: 500 mg Cholecalciferol (Vitamin D) 1,000 iu PO DAILY [facility] Last Admin: 09/22/16 08:39 Dose: 1,000 iu Famotidine (Pepcid) 20 mg PO DAILY [facility] Last Admin: 09/22/16 08:39 Dose: 20 mg Furosemide (Lasix) 20 mg PO DAILY [facility] Last Admin: 09/22/16 08:36 Dose: 20 mg Lactic Acid (Lac-Hydrin 12% Lotion (225 G)) 1 applic TOP Q12 [facility] Last Admin: 09/22/16 21:22 Dose: 1 applic Metoprolol Tartrate (Lopressor) 75 mg PO Q12@0800,1700 [facility] Last Admin: 09/22/16 16:47 Dose: 75 mg Nitroglycerin (Nitro-Dur 0.2 Mg/Hr Patch) 1 patch TD HS [facility] Last Admin: 09/22/16 21:21 Dose: 1 patch Potassium Chloride (K-Dur 20 Meq Er Tab) 20 meq PO BID [facility] Last Admin: 09/22/16 16:47 Dose: 20 meq Potassium Phos/Sodium Phos (Neutra-Phos) 1 pkt PO BID [facility] Last Admin: 09/22/16 16:48 Dose: 1 pkt Simethicone (Mylicon Chew Tab) 80 mg PO TID [facility] Last Admin: 09/22/16 16:49 Dose: 80 mg Sitagliptin Phosphate (Januvia) 50 mg PO DAILY [facility] - Labs Labs: 09/20/16 07:06 09/20/16 07:06 PT 29.6 SECONDS (9.6-11.2) H 09/22/16 05:30 INR 2.85 (0.92-1.08) H 09/22/16 05:30
[2016-09-23] MEDS: Potassium Chloride 20 mEq ER Tab PO SCH ×2 (09:06→16:55)
[2016-09-23] MEDS: Potassium & Sodium Phosphate PO SCH ×2 (09:11→16:58)
[2016-09-23] MEDS: Simethicone 80 mg Chewtab PO SCH ×3 (09:56→16:57)
--- NOTE | 2016-09-23 10:09 | CP.PCM.PN ---
Subjective - Date & Time of Evaluation Date of Evaluation: 09/23/16 Time of Evaluation: 10:07 - Subjective Subjective: Had right leg pain last night affecting her sleep. Give Tylenol and had partial relief. Noted to have elevated BP 170/100 . PT at bedside. Has no headaches no chest pains or SOB. Objective - Vital Signs/Intake and Output Vital Signs (last 24 hours): Temp Pulse Resp BP Pulse Ox 97.7 F 74 20 152/84 H 99 09/23/16 08:18 09/23/16 09:08 09/23/16 08:18 09/23/16 09:08 09/23/16 08:18 - Medications Medications: Current Medications Acetaminophen (Tylenol 325mg Tab) 650 mg PO Q4 PRN PRN Reason: Pain, moderate (4-7) Last Admin: 09/22/16 23:16 Dose: 650 mg Aspirin (Aspirin Chewable) 81 mg PO DAILY [facility] Last Admin: 09/23/16 09:05 Dose: 81 mg Atorvastatin Calcium (Lipitor) 10 mg PO HS [facility] Last Admin: 09/22/16 21:13 Dose: 10 mg Camphor/Menthol (Bengay) 1 applic TOP QID PRN PRN Reason: Arthritis Last Admin: 09/22/16 21:13 Dose: 1 u Cephalexin Monohydrate (Keflex) 500 mg PO Q6 [facility] Last Admin: 09/23/16 09:07 Dose: 500 mg Cholecalciferol (Vitamin D) 1,000 iu PO DAILY [facility] Last Admin: 09/23/16 09:12 Dose: 1,000 iu Famotidine (Pepcid) 20 mg PO DAILY [facility] Last Admin: 09/23/16 09:11 Dose: 20 mg Furosemide (Lasix) 20 mg PO DAILY [facility] Last Admin: 09/23/16 09:07 Dose: 20 mg Lactic Acid (Lac-Hydrin 12% Lotion (225 G)) 1 applic TOP Q12 [facility] Last Admin: 09/23/16 09:07 Dose: 1 applic Metoprolol Tartrate (Lopressor) 75 mg PO Q12@0800,1700 [facility] Last Admin: 09/23/16 09:08 Dose: 75 mg Nitroglycerin (Nitro-Dur 0.2 Mg/Hr Patch) 1 patch TD HS [facility] Last Admin: 09/22/16 21:21 Dose: 1 patch Potassium Chloride (K-Dur 20 Meq Er Tab) 20 meq PO BID [facility] Last Admin: 09/23/16 09:06 Dose: 20 meq Potassium Phos/Sodium Phos (Neutra-Phos) 1 pkt PO BID [facility] Last Admin: 09/23/16 09:11 Dose: 1 pkt Simethicone (Mylicon Chew Tab) 80 mg PO TID [facility] Last Admin: 09/23/16 09:56 Dose: 80 mg Sitagliptin Phosphate (Januvia) 50 mg PO DAILY [facility] Last Admin: 09/23/16 09:06 Dose: 50 mg Warfarin Sodium (Coumadin) 1 mg PO QD5 [facility] PRN Reason: Protocol Stop: 09/23/16 17:01 - Labs Labs: 09/20/16 07:06 09/20/16 07:06 PT 28.8 SECONDS (9.6-11.2) H 09/23/16 07:20 INR 2.77 (0.92-1.08) H 09/23/16 07:20 - Head Exam Head Exam: NORMAL INSPECTION - Eye Exam Eye Exam: Normal appearance - ENT Exam ENT Exam: Mucous Membranes Moist - Respiratory Exam Respiratory Exam: Clear to Ausculation Bilateral - Cardiovascular Exam Cardiovascular Exam: REGULAR RHYTHM - GI/Abdominal Exam GI & Abdominal Exam: Normal Bowel Sounds - Neurological Exam Neurological Exam: CN II-XII Intact, Oriented x3 Assessment and Plan (1) Coronary artery disease Status: Acute (2) Atrial fibrillation Status: Chronic (3) Physical debility Status: Acute (4) 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 - Assessment and Plan (Free Text) Plan: Voltaren gel to lower e cont meds.xtr bid . Increase Lopressor to 100 bid Add Losartan . cont al other meds.
[2016-09-23] MEDS: Nitroglycerin 0.2 mg/hr Top Patch TD SCH (21:44)
[2016-09-24] MEDS: Potassium Chloride 20 mEq ER Tab PO SCH ×2 (08:21→16:30)
[2016-09-24] MEDS: Potassium & Sodium Phosphate PO SCH ×2 (08:24→16:31)
[2016-09-24] MEDS: Simethicone 80 mg Chewtab PO SCH ×3 (08:25→16:34)
[2016-09-24] MEDS: Nitroglycerin 0.2 mg/hr Top Patch TD SCH (21:26)
[2016-09-24] MEDS: Docusate-Senna 50 mg-8.6 mg Tab PO SCH (21:30)
[2016-09-25] MEDS: Potassium Chloride 20 mEq ER Tab PO SCH ×2 (08:36→16:51)
[2016-09-25] MEDS: Potassium & Sodium Phosphate PO SCH ×2 (08:38→16:52)
[2016-09-25] MEDS: Simethicone 80 mg Chewtab PO SCH ×3 (08:43→16:52)
[2016-09-25] MEDS: Nitroglycerin 0.2 mg/hr Top Patch TD SCH (21:43)
[2016-09-25] MEDS: Docusate-Senna 50 mg-8.6 mg Tab PO SCH (21:45)
--- NOTE | 2016-09-26 07:53 | CP.PCM.PN ---
Subjective - Date & Time of Evaluation Date of Evaluation: 09/26/16 Time of Evaluation: 07:53 - Subjective Subjective: 86 year old female with PMHx of HTN, CAD s/p CABG years ago, and DM seen at bedside for resolved bilateral lower extremity celllulitis. Patient denies any pain to her lower extremities. She is in no acute distress, AAOx3. Her daughter is concerned about her 5th toenail on the left as it has lifted from the skin and wishes for it to be trimmed. She denies n/f/v/c/d/sob. Objective - Vital Signs/Intake and Output Vital Signs (last 24 hours): Temp Pulse Resp BP Pulse Ox 97.7 F 70 20 150/66 99 09/25/16 20:48 09/25/16 21:44 09/25/16 20:48 09/25/16 21:44 09/25/16 20:48 - Medications Medications: Current Medications Acetaminophen (Tylenol 325mg Tab) 650 mg PO Q4 PRN PRN Reason: Pain, moderate (4-7) Last Admin: 09/25/16 21:45 Dose: 650 mg Aspirin (Aspirin Chewable) 81 mg PO DAILY [facility] Last Admin: 09/25/16 08:35 Dose: 81 mg Atorvastatin Calcium (Lipitor) 10 mg PO HS [facility] Last Admin: 09/25/16 21:44 Dose: 10 mg Camphor/Menthol (Bengay) 1 applic TOP QID PRN PRN Reason: Arthritis Last Admin: 09/22/16 21:13 Dose: 1 u Cholecalciferol (Vitamin D) 1,000 iu PO DAILY [facility] Last Admin: 09/25/16 13:02 Dose: 1,000 iu Famotidine (Pepcid) 20 mg PO DAILY [facility] Last Admin: 09/25/16 08:36 Dose: 20 mg Furosemide (Lasix) 20 mg PO DAILY [facility] Last Admin: 09/25/16 08:38 Dose: 20 mg Lactic Acid (Lac-Hydrin 12% Lotion (225 G)) 1 applic TOP Q12 [facility] Last Admin: 09/25/16 21:46 Dose: 1 applic Losartan Potassium (Cozaar) 50 mg PO DAILY [facility] Last Admin: 09/25/16 08:37 Dose: 50 mg Metoprolol Tartrate (Lopressor) 100 mg PO Q12 [facility] Last Admin: 09/25/16 21:44 Dose: 100 mg Nitroglycerin (Nitro-Dur 0.2 Mg/Hr Patch) 1 patch TD HS [facility] Last Admin: 09/25/16 21:43 Dose: 1 patch Potassium Chloride (K-Dur 20 Meq Er Tab) 20 meq PO BID [facility] Last Admin: 09/25/16 16:51 Dose: 20 meq Potassium Phos/Sodium Phos (Neutra-Phos) 1 pkt PO BID [facility] Last Admin: 09/25/16 16:52 Dose: 1 pkt Senna/Docusate Sodium (Senokot S 50 Mg-8.6 Mg) 2 tab PO HS [facility] Last Admin: 09/25/16 21:45 Dose: Not Given Simethicone (Mylicon Chew Tab) 80 mg PO TID [facility] Last Admin: 09/25/16 16:52 Dose: 80 mg Sitagliptin Phosphate (Januvia) 50 mg PO DAILY@0800 [facility] Last Admin: 09/25/16 08:36 Dose: 50 mg - Labs Labs: 09/20/16 07:06 09/20/16 07:06 PT 17.6 SECONDS (9.6-11.2) H D 09/25/16 07:05 INR 1.69 (0.92-1.08) H D 09/25/16 07:05 - Constitutional Appears: Well, Non-toxic, No Acute Distress - Extremities Exam Additional comments: Vasc: DP and PT pulses palpable 2/4 b/l. TG warm to warm, CFT < 3 sec to all digits. No edema noted. Neuro: Gross sensation diminished Derm: Erythema is resolved. Superficial healed ulceration noted to right heel, no open lesions, hyperkeratotic lesion noted to plantar medial 1st metatarsal head of left foot, nails are thickened and dystrophic, but WNL for length, right 5th digit nail is lifted from the skin and the nail bed has dried sanguineous drainage. No purulence, no drainage, no malodor, no fluctuance, no underlying abscess formation Ortho: No pain on palpation to lower extremities b/l. - Neurological Exam Neurological Exam: Alert, Awake, Oriented x3 - Psychiatric Exam Psychiatric exam: Normal Affect, Normal Mood Assessment and Plan - Assessment and Plan (Free Text) Assessment: 86 y/o female seen at bedside for follow up of LE cellulitis- resolved, and nail 5 on the right lifting from nail bed Plan: Patient examined and evaluated Chart and vitals reviewed Discussed in detail with attending Dr. Obrien Labs and vitals reviewed; currently afebrile Offloading boots discontinue per PMD, patient to have heels offloaded with pillows at all times while in bed Nails 5 on the right was debrided debrided in thickness and in length without incident using nail nippers Bacitracin and bandaid applied to right 5th digit, nursing to change daily Continue Physical therapy Podiatry will continue to monitor while patient remains in house
[2016-09-26 08:41] VITALS: PULSE 60
[2016-09-26] MEDS: Simethicone 80 mg Chewtab PO SCH ×3 (08:57→17:18)
[2016-09-26] MEDS: Potassium Chloride 20 mEq ER Tab PO SCH ×2 (08:57→16:37)
[2016-09-26] MEDS: Potassium & Sodium Phosphate PO SCH ×2 (08:58→16:37)
[2016-09-26 20:51] VITALS: TEMP 96.8
[2016-09-26] MEDS: Docusate-Senna 50 mg-8.6 mg Tab PO SCH (21:20)
[2016-09-26] MEDS: Nitroglycerin 0.2 mg/hr Top Patch TD SCH (21:21)
[2016-09-27] MEDS: Menthol/Methyl Salicylate Oinment TOP PRN (01:23)
[2016-09-27 08:23] VITALS: BP 128/71; O2SAT 99
[2016-09-27] MEDS: Potassium Chloride 20 mEq ER Tab PO SCH (08:54)
[2016-09-27] MEDS: Potassium & Sodium Phosphate PO SCH (08:57)
[2016-09-27] MEDS: Simethicone 80 mg Chewtab PO SCH ×2 (08:59→13:35)
--- NOTE | 2016-09-27 12:26 | CP.PCM.PN ---
Subjective - Date & Time of Evaluation Date of Evaluation: 09/24/16 Time of Evaluation: 10:00 - Subjective Subjective: Patient remains stable Still with some pain on both legs sandee right Has fair appetite Objective - Vital Signs/Intake and Output Vital Signs (last 24 hours): Temp Pulse Resp BP Pulse Ox 96.8 F L 60 20 128/71 99 09/27/16 08:23 09/27/16 08:56 09/27/16 08:23 09/27/16 08:56 09/27/16 08:23 - Medications Medications: Current Medications Acetaminophen (Tylenol 325mg Tab) 650 mg PO Q4 PRN PRN Reason: Pain, moderate (4-7) Last Admin: 09/26/16 20:18 Dose: 650 mg Aspirin (Aspirin Chewable) 81 mg PO DAILY [facility] Last Admin: 09/27/16 08:53 Dose: 81 mg Atorvastatin Calcium (Lipitor) 10 mg PO HS [facility] Last Admin: 09/26/16 21:20 Dose: 10 mg Camphor/Menthol (Bengay) 1 applic TOP QID PRN PRN Reason: Arthritis Last Admin: 09/27/16 01:23 Dose: 1 u Cholecalciferol (Vitamin D) 1,000 iu PO DAILY [facility] Last Admin: 09/27/16 11:43 Dose: 1,000 iu Famotidine (Pepcid) 20 mg PO DAILY [facility] Last Admin: 09/27/16 08:57 Dose: 20 mg Furosemide (Lasix) 20 mg PO DAILY [facility] Last Admin: 09/27/16 08:55 Dose: 20 mg Lactic Acid (Lac-Hydrin 12% Lotion (225 G)) 1 applic TOP Q12 [facility] Last Admin: 09/27/16 08:55 Dose: Not Given Losartan Potassium (Cozaar) 50 mg PO DAILY [facility] Last Admin: 09/27/16 08:53 Dose: 50 mg Metoprolol Tartrate (Lopressor) 100 mg PO Q12 [facility] Last Admin: 09/27/16 08:56 Dose: 100 mg Nitroglycerin (Nitro-Dur 0.2 Mg/Hr Patch) 1 patch TD HS [facility] Last Admin: 09/26/16 21:21 Dose: 1 patch Potassium Chloride (K-Dur 20 Meq Er Tab) 20 meq PO BID [facility] Last Admin: 09/27/16 08:54 Dose: 20 meq Potassium Phos/Sodium Phos (Neutra-Phos) 1 pkt PO BID [facility] Last Admin: 09/27/16 08:57 Dose: 1 pkt Senna/Docusate Sodium (Senokot S 50 Mg-8.6 Mg) 2 tab PO HS [facility] Last Admin: 09/26/16 21:20 Dose: 2 tab Simethicone (Mylicon Chew Tab) 80 mg PO TID [facility] Last Admin: 09/27/16 08:59 Dose: 80 mg Sitagliptin Phosphate (Januvia) 50 mg PO DAILY@0800 [facility] Last Admin: 09/27/16 08:54 Dose: 50 mg - Labs Labs: 09/20/16 07:06 09/20/16 07:06 PT 25.8 SECONDS (9.6-11.2) H D 09/27/16 09:35 INR 2.48 (0.92-1.08) H D 09/27/16 09:35 Assessment and Plan (1) Coronary artery disease Status: Acute (2) Atrial fibrillation Status: Chronic (3) Physical debility Status: Acute (4) 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
--- NOTE | 2016-09-27 12:27 | CP.PCM.PN ---
Subjective - Date & Time of Evaluation Date of Evaluation: 09/25/16 Time of Evaluation: 09:30 - Subjective Subjective: Patient is doing well with PT Has no chest pain or SOB. Objective - Vital Signs/Intake and Output Vital Signs (last 24 hours): Temp Pulse Resp BP Pulse Ox 96.8 F L 60 20 128/71 99 09/27/16 08:23 09/27/16 08:56 09/27/16 08:23 09/27/16 08:56 09/27/16 08:23 - Medications Medications: Current Medications Acetaminophen (Tylenol 325mg Tab) 650 mg PO Q4 PRN PRN Reason: Pain, moderate (4-7) Last Admin: 09/26/16 20:18 Dose: 650 mg Aspirin (Aspirin Chewable) 81 mg PO DAILY COUNT INCLUDES [facility] Last Admin: 09/27/16 08:53 Dose: 81 mg Atorvastatin Calcium (Lipitor) 10 mg PO HS COUNT INCLUDES [facility] Last Admin: 09/26/16 21:20 Dose: 10 mg Camphor/Menthol (Bengay) 1 applic TOP QID PRN PRN Reason: Arthritis Last Admin: 09/27/16 01:23 Dose: 1 u Cholecalciferol (Vitamin D) 1,000 iu PO DAILY COUNT INCLUDES [facility] Last Admin: 09/27/16 11:43 Dose: 1,000 iu Famotidine (Pepcid) 20 mg PO DAILY COUNT INCLUDES [facility] Last Admin: 09/27/16 08:57 Dose: 20 mg Furosemide (Lasix) 20 mg PO DAILY COUNT INCLUDES [facility] Last Admin: 09/27/16 08:55 Dose: 20 mg Lactic Acid (Lac-Hydrin 12% Lotion (225 G)) 1 applic TOP Q12 COUNT INCLUDES [facility] Last Admin: 09/27/16 08:55 Dose: Not Given Losartan Potassium (Cozaar) 50 mg PO DAILY COUNT INCLUDES [facility] Last Admin: 09/27/16 08:53 Dose: 50 mg Metoprolol Tartrate (Lopressor) 100 mg PO Q12 COUNT [facility]CLUDES [facility] Last Admin: 09/27/16 08:56 Dose: 100 mg Nitroglycerin (Nitro-Dur 0.2 Mg/Hr Patch) 1 patch TD HS COUNT INCLUDES [facility] Last Admin: 09/26/16 21:21 Dose: 1 patch Potassium Chloride (K-Dur 20 Meq Er Tab) 20 meq PO BID COUNT INCLUDES [facility] Last Admin: 09/27/16 08:54 Dose: 20 meq Potassium Phos/Sodium Phos (Neutra-Phos) 1 pkt PO BID COUNT INCLUDES [facility] Last Admin: 09/27/16 08:57 Dose: 1 pkt Senna/Docusate Sodium (Senokot S 50 Mg-8.6 Mg) 2 tab PO HS COUNT INCLUDES [facility] Last Admin: 09/26/16 21:20 Dose: 2 tab Simethicone (Mylicon Chew Tab) 80 mg PO TID COUNT INCLUDES [facility] Last Admin: 09/27/16 08:59 Dose: 80 mg Sitagliptin Phosphate (Januvia) 50 mg PO DAILY@0800 COUNT INCLUDES [facility] Last Admin: 09/27/16 08:54 Dose: 50 mg - Labs Labs: 09/20/16 07:06 09/20/16 07:06 PT 25.8 SECONDS (9.6-11.2) H D 09/27/16 09:35 INR 2.48 (0.92-1.08) H D 09/27/16 09:35 Assessment and Plan (1) Coronary artery disease Status: Acute (2) Atrial fibrillation Status: Chronic (3) Physical debility Status: Acute (4) 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
--- NOTE | 2016-09-27 12:28 | CP.PCM.PN ---
Subjective - Date & Time of Evaluation Date of Evaluation: 09/26/16 Time of Evaluation: 09:30 - Subjective Subjective: Patient remains stable Has no chest pain Objective - Vital Signs/Intake and Output Vital Signs (last 24 hours): Temp Pulse Resp BP Pulse Ox 96.8 F L 60 20 128/71 99 09/27/16 08:23 09/27/16 08:56 09/27/16 08:23 09/27/16 08:56 09/27/16 08:23 - Medications Medications: Current Medications Acetaminophen (Tylenol 325mg Tab) 650 mg PO Q4 PRN PRN Reason: Pain, moderate (4-7) Last Admin: 09/26/16 20:18 Dose: 650 mg Aspirin (Aspirin Chewable) 81 mg PO DAILY [facility] Last Admin: 09/27/16 08:53 Dose: 81 mg Atorvastatin Calcium (Lipitor) 10 mg PO HS [facility] Last Admin: 09/26/16 21:20 Dose: 10 mg Camphor/Menthol (Bengay) 1 applic TOP QID PRN PRN Reason: Arthritis Last Admin: 09/27/16 01:23 Dose: 1 u Cholecalciferol (Vitamin D) 1,000 iu PO DAILY [facility] Last Admin: 09/27/16 11:43 Dose: 1,000 iu Famotidine (Pepcid) 20 mg PO DAILY [facility] Last Admin: 09/27/16 08:57 Dose: 20 mg Furosemide (Lasix) 20 mg PO DAILY [facility] Last Admin: 09/27/16 08:55 Dose: 20 mg Lactic Acid (Lac-Hydrin 12% Lotion (225 G)) 1 applic TOP Q12 [facility] Last Admin: 09/27/16 08:55 Dose: Not Given Losartan Potassium (Cozaar) 50 mg PO DAILY [facility] Last Admin: 09/27/16 08:53 Dose: 50 mg Metoprolol Tartrate (Lopressor) 100 mg PO Q12 [facility] Last Admin: 09/27/16 08:56 Dose: 100 mg Nitroglycerin (Nitro-Dur 0.2 Mg/Hr Patch) 1 patch TD HS [facility] Last Admin: 09/26/16 21:21 Dose: 1 patch Potassium Chloride (K-Dur 20 Meq Er Tab) 20 meq PO BID [facility] Last Admin: 09/27/16 08:54 Dose: 20 meq Potassium Phos/Sodium Phos (Neutra-Phos) 1 pkt PO BID [facility] Last Admin: 09/27/16 08:57 Dose: 1 pkt Senna/Docusate Sodium (Senokot S 50 Mg-8.6 Mg) 2 tab PO HS [facility] Last Admin: 09/26/16 21:20 Dose: 2 tab Simethicone (Mylicon Chew Tab) 80 mg PO TID [facility] Last Admin: 09/27/16 08:59 Dose: 80 mg Sitagliptin Phosphate (Januvia) 50 mg PO DAILY@0800 [facility] Last Admin: 09/27/16 08:54 Dose: 50 mg - Labs Labs: 09/20/16 07:06 09/20/16 07:06 PT 25.8 SECONDS (9.6-11.2) H D 09/27/16 09:35 INR 2.48 (0.92-1.08) H D 09/27/16 09:35 Assessment and Plan (1) Coronary artery disease Status: Acute (2) Atrial fibrillation Status: Chronic (3) Physical debility Status: Acute (4) 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
--- NOTE | 2016-09-27 12:30 | CP.PCM.DIS ---
Provider - Provider Date of Admission: 09/20/16 00:32 Attending physician: Arnel Melgar MD Diagnosis - Discharge Diagnosis (1) Coronary artery disease Status: Acute (2) Atrial fibrillation Status: Chronic (3) Physical debility Status: Acute (4) 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 Hospital Course - Lab Results Lab Results: Most Recent Lab Values WBC 7.9 K/uL (4.8-10.8) 09/20/16 07:06 RBC 3.68 Mil/uL (3.80-5.20) L 09/20/16 07:06 Hgb 11.6 g/dL (12.0-16.0) L 09/20/16 07:06 Hct 34.7 % (34.0-47.0) 09/20/16 07:06 MCV 94.3 fl (81.0-99.0) 09/20/16 07:06 MCH 31.6 pg (27.0-31.0) H 09/20/16 07:06 MCHC 33.5 g/dL (33.0-37.0) 09/20/16 07:06 RDW 13.2 % (11.5-14.5) 09/20/16 07:06 Plt Count 161 K/uL (130-400) 09/20/16 07:06 PT 25.8 SECONDS (9.6-11.2) H D 09/27/16 09:35 INR 2.48 (0.92-1.08) H D 09/27/16 09:35 Sodium 139 mmol/l (132-148) 09/20/16 07:06 Potassium 4.8 MMOL/L (3.6-5.0) 09/20/16 07:06 Chloride 99 mmol/L (98-107) 09/20/16 07:06 Carbon Dioxide 25 mmol/L (22-30) 09/20/16 07:06 Anion Gap 19 (10-20) 09/20/16 07:06 BUN 24 mg/dl (7-17) H 09/20/16 07:06 Creatinine 0.9 mg/dL (0.7-1.2) 09/20/16 07:06 Est GFR ( Amer) > 60 09/20/16 07:06 Est GFR (Non-Af Amer) 60 09/20/16 07:06 POC Glucose (mg/dL) 136 mg/dL (65-110) H 09/27/16 11:22 Random Glucose 146 mg/dL (65-105) H 09/20/16 07:06 Calcium 9.0 mg/dL (8.4-10.2) 09/20/16 07:06 Magnesium 1.8 MG/DL (1.6-2.3) 09/20/16 07:06 - Hospital Course Hospital Course: Patient is doing well Has no chest pain or SOB She is able to walk with assistance and a walker. Discharge Exam - Head Exam Head Exam: NORMAL INSPECTION Discharge Plan - Follow Up Plan Condition: GOOD Disposition: HOME/ ROUTINE Instructions: Cellulitis (DC), Fall Prevention (DC) Referrals: Larry Haque MD [Staff Provider] - Crispin Obrien DPM [Staff Provider] -
== END 2016-09-27 15:00 | disposition home health service (06) | DRG 563 ==
LOC: H.TCU 00:32
PROVIDERS: ADMIT Family Medicine; ATTEND Family Medicine
PROC: F07Z9FZ Gait Training/Functional Ambulation Treatment using Assistive, Adaptive, Supportive or Protective Equipment (ICD-10-PCS; principal; 2016-09-20)
PROC: F08Z4FZ Home Management Treatment using Assistive, Adaptive, Supportive or Protective Equipment (ICD-10-PCS; 2016-09-20)
PROC: F07L6FZ Therapeutic Exercise Treatment of Musculoskeletal System - Lower Back / Lower Extremity using Assistive, Adaptive, Supportive or Protective Equipment (ICD-10-PCS; 2016-09-21)
PROC: 0HBRXZZ Excision of Toe Nail, External Approach (ICD-10-PCS; 2016-09-21)
PROC: 0HBRXZZ Excision of Toe Nail, External Approach (ICD-10-PCS; 2016-09-26)
DX: L03.115 Cellulitis of right lower limb (principal); I50.20 Unspecified systolic (congestive) heart failure; I11.0 Hypertensive heart disease with heart failure; I48.2 Chronic atrial fibrillation; L03.116 Cellulitis of left lower limb; I87.2 Venous insufficiency (chronic) (peripheral); E11.9 Type 2 diabetes mellitus without complications; L60.8 Other nail disorders; I25.10 Atherosclerotic heart disease of native coronary artery without angina pectoris; R54 Age-related physical debility; E78.00 Pure hypercholesterolemia, unspecified; Z95.1 Presence of aortocoronary bypass graft; Z95.0 Presence of cardiac pacemaker; Z79.01 Long term (current) use of anticoagulants